=== PATIENT | female | born 1950 | race Caucasian/White ===

== ENCOUNTER → 2021-02-11 | Outpatient (CLI) | payer SELFPAY | END | disposition home or self-care (01) | LOC: LAB SHORT 13:37 | PROVIDERS: Family Medicine | DX: M54.5 Low back pain (principal); Z79.899 Other long term (current) drug therapy | CPT/HCPCS: G0480 ==

== ENCOUNTER → 2021-08-29 | Outpatient (CLI) | payer MEDICARE, OTHER | END | disposition home or self-care (01) | LOC: LAB SHORT 13:52 | PROVIDERS: Family Medicine | DX: M54.50 Low back pain, unspecified (principal); G89.29 Other chronic pain | CPT/HCPCS: G0480 ==

== ENCOUNTER → 2021-09-22 | Outpatient (CLI) | payer MEDICARE, OTHER | END | disposition home or self-care (01) | LOC: LAB SHORT 14:33 | DX: N39.0 Urinary tract infection, site not specified (principal) | CPT/HCPCS: 87077; 87086; 87186 ==

== ENCOUNTER → 2021-10-06 | Outpatient (CLI) | payer MEDICARE, OTHER ==
[2021-10-06 14:16] LABS: BASOPHILS ABSOLUTE AUTO 0.03 K/mm3 (0.00-0.23); BASOPHILS PERCENT AUTO 1 % (0-2); EOSINOPHILS ABSOLUTE AUTO 0.22 K/mm3 (0.00-0.68); EOSINOPHILS PERCENT AUTO 6 % (0-6); Hematocrit 34.5 % (33.0-51.0); Hemoglobin 11.8 g/dL (11.5-16.0); IMMATURE GRAN ABSOLUTE AUTO 0.01 K/mm3 (0.00-0.10); IMMATURE GRAN PERCENT AUTO 0 % (0-1); LYMPHOCYTES ABSOLUTE AUTO 0.37 K/mm3 (0.84-5.20); LYMPHOCYTES PERCENT AUTO 10 % (21-46); MONOCYTES PERCENT AUTO 10 % (4-13); Mean Corpuscular HGB Conc 34.2 g/dL (31.5-36.5); Mean Corpuscular Volume 94 fL (80-100); Mean Platelet Volume 10.6 fL (9.1-12.4); NEUTROPHILS PERCENT AUTO 73 % (41-73); Platelet Count 181 K/mm3 (150-400); RDW Coefficient Variation 14.3 % (11.7-14.2); RDW Standard Deviation 48.3 fL (35.1-46.3); Red Blood Cell Count 3.69 M/mm3 (3.80-5.20); White Blood Cell Count 3.83 K/mm3 (4.00-11.30)
[2021-10-06 14:28] LABS: Alanine Aminotransfer (ALT/SGP 23 U/L (12-78); Albumin, Blood 3.4 g/dL (3.4-5.0); Albumin/Globulin Ratio 0.9 (0.8-1.8); Alk Phos 101 U/L (40-126); Anion Gap 9 mmol/L (6-16); Aspartate Aminotrans (AST/SGOT 24 U/L (12-37); Bilirubin, Total 0.3 mg/dL (0.1-1.0); Blood Urea Nitrogen 14 mg/dL (8-24); Bun/Creatinine Ratio 18.7 (12.0-20.0); CO2, Blood 28 mmol/L (21-32); Calcium, Blood 9.1 mg/dL (8.5-10.1); Chloride, Blood 92 mmol/L (98-108); Creatinine, Blood 0.75 mg/dL (0.40-1.00); Globulin, Blood 3.7 g/dL (2.2-4.0); Glomerular Filtration Rate >60 (60-); Glucose, Blood 108 mg/dL (70-99); Potassium, Blood 3.8 mmol/L (3.5-5.5); Sodium, Blood 129 mmol/L (136-145); Total Protein, Blood 7.1 g/dL (6.4-8.2)
== END | disposition home or self-care (01) ==
LOC: LAB 14:13 → LAB SHORT 14:13
PROVIDERS: Family Medicine
DX: R10.9 Unspecified abdominal pain (principal)
CPT/HCPCS: 80053; 85025

== ENCOUNTER → 2021-10-08 | Outpatient (CLI) | payer MEDICARE, OTHER ==
[2021-10-08 12:21] LABS: BASOPHILS ABSOLUTE AUTO 0.02 K/mm3 (0.00-0.23); BASOPHILS PERCENT AUTO 1 % (0-2); EOSINOPHILS ABSOLUTE AUTO 0.34 K/mm3 (0.00-0.68); EOSINOPHILS PERCENT AUTO 9 % (0-6); Hematocrit 38.5 % (33.0-51.0); Hemoglobin 13.2 g/dL (11.5-16.0); IMMATURE GRAN ABSOLUTE AUTO 0.01 K/mm3 (0.00-0.10); IMMATURE GRAN PERCENT AUTO 0 % (0-1); LYMPHOCYTES ABSOLUTE AUTO 0.53 K/mm3 (0.84-5.20); LYMPHOCYTES PERCENT AUTO 15 % (21-46); MONOCYTES ABSOLUTE AUTO 0.32 K/mm3 (0.16-1.47); MONOCYTES PERCENT AUTO 9 % (4-13); Mean Corpuscular HGB Conc 34.3 g/dL (31.5-36.5); Mean Corpuscular Volume 93 fL (80-100); Mean Platelet Volume 10.5 fL (9.1-12.4); NEUTROPHILS ABSOLUTE AUTO 2.39 K/mm3 (1.96-9.15); NEUTROPHILS PERCENT AUTO 66 % (41-73); Platelet Count 168 K/mm3 (150-400); RDW Coefficient Variation 14.3 % (11.7-14.2); RDW Standard Deviation 48.5 fL (35.1-46.3); Red Blood Cell Count 4.12 M/mm3 (3.80-5.20); White Blood Cell Count 3.61 K/mm3 (4.00-11.30)
[2021-10-08 12:50] LABS: Alanine Aminotransfer (ALT/SGP 28 U/L (12-78); Albumin, Blood 3.5 g/dL (3.4-5.0); Alk Phos 105 U/L (40-126); Anion Gap 10 mmol/L (6-16); Aspartate Aminotrans (AST/SGOT 32 U/L (12-37); Bilirubin, Total 0.4 mg/dL (0.1-1.0); Blood Urea Nitrogen 10 mg/dL (8-24); Bun/Creatinine Ratio 11.9 (12.0-20.0); CO2, Blood 29 mmol/L (21-32); Calcium, Blood 8.8 mg/dL (8.5-10.1); Chloride, Blood 92 mmol/L (98-108); Creatinine, Blood 0.84 mg/dL (0.40-1.00); Globulin, Blood 3.6 g/dL (2.2-4.0); Glomerular Filtration Rate >60 (60-); Glucose, Blood 112 mg/dL (70-99); Potassium, Blood 3.7 mmol/L (3.5-5.5); Sodium, Blood 131 mmol/L (136-145); Total Protein, Blood 7.1 g/dL (6.4-8.2)
== END | disposition home or self-care (01) ==
LOC: LAB 12:16 → LAB SHORT 12:16
PROVIDERS: Chiropractor
DX: T80.69XA Other serum reaction due to other serum, initial encounter (principal); T50.905A Adverse effect of unspecified drugs, medicaments and biological substances, initial encounter
CPT/HCPCS: 80053; 85025; 85651; 86140

== ENCOUNTER 2022-06-19 11:36 | Day surgery (SDC) | payer MEDICARE, OTHER ==
[~2022-06-19] VITALS: Ht 157.5 cm; Wt 57.3 kg
[~2022-06-19 11:36] MED LIST: ALBU90OI INH; ATEN25 PO; BEVESPI AEROS10.7 G1 INH; BUDESONIDE0.5 MG/2 M INH; CATAPRES0.1 MG PO; CIPR250 PO; ENALAPRIL MALEA10 MG PO; FOLI1 PO; FOSAMAX70 MG PO; GABA300 PO; GUAI600T33 PO; IPRAT-ALBUT 0.5-3 ML NEB; LEVFLO500 PO; METHOTREXA25 MG/1 M4 IM; NITR100CA PO; Norco 10-325 T1 EACH PO; PANT40 PO; PREMARIN VAG; Prednisone10 MG PO; Protonix40 MG PO
[2022-06-19] MEDS ORDERED: MENEST (12:12)
== END 2022-06-19 14:50 | disposition home or self-care (01) ==
LOC: ORSCSDS 11:36
PROVIDERS: Internal Medicine Gastroenterology
PROC: 0DBL8ZX Excision of Transverse Colon, Via Natural or Artificial Opening Endoscopic, Diagnostic (ICD-10-PCS; principal; 2022-06-19 12:45)
DX: Z12.11 Encounter for screening for malignant neoplasm of colon (principal); Z86.010 Personal history of colon polyps; D12.3 Benign neoplasm of transverse colon; K64.8 Other hemorrhoids; I10 Essential (primary) hypertension; K21.9 Gastro-esophageal reflux disease without esophagitis; J44.9 Chronic obstructive pulmonary disease, unspecified; F17.210 Nicotine dependence, cigarettes, uncomplicated; Z79.899 Other long term (current) drug therapy
CPT/HCPCS: 88305; J2405; J2704; J7120

== ENCOUNTER → 2023-01-01 | Outpatient (CLI) | payer MEDICARE, OTHER ==
[~2023-01-01] MED LIST changes: +MENEST
== END | disposition home or self-care (01) ==
LOC: LAB SHORT 14:34 → LAB 14:34
DX: N39.0 Urinary tract infection, site not specified (principal)
CPT/HCPCS: 87077; 87086; 87186

== ENCOUNTER 2023-03-21 11:13 | Emergency (ER) | payer MEDICARE, OTHER ==
[~2023-03-21] VITALS: Ht 157.5 cm; Wt 57.1 kg
[2023-03-21] MEDS ORDERED: FUROSEMIDE20 MG PO (11:24)
[2023-03-21] MEDS ORDERED: BUPROPION HCL200 M1 PO (11:24)
[2023-03-21 11:42] LABS: BASOPHILS ABSOLUTE AUTO 0.05 K/mm3 (0.00-0.23); BASOPHILS PERCENT AUTO 1 % (0-2); EOSINOPHILS ABSOLUTE AUTO 0.19 K/mm3 (0.00-0.68); EOSINOPHILS PERCENT AUTO 3 % (0-6); Hematocrit 34.6 % (33.0-51.0); Hemoglobin 11.4 g/dL (11.5-16.0); IMMATURE GRAN ABSOLUTE AUTO 0.04 K/mm3 (0.00-0.10); IMMATURE GRAN PERCENT AUTO 1 % (0-1); LYMPHOCYTES ABSOLUTE AUTO 0.63 K/mm3 (0.84-5.20); LYMPHOCYTES PERCENT AUTO 9 % (21-46); MONOCYTES ABSOLUTE AUTO 0.64 K/mm3 (0.16-1.47); MONOCYTES PERCENT AUTO 9 % (4-13); Mean Corpuscular HGB 29.1 pg (26.0-34.0); Mean Corpuscular HGB Conc 32.9 g/dL (31.5-36.5); Mean Corpuscular Volume 88 fL (80-100); Mean Platelet Volume 9.9 fL (9.1-12.4); NEUTROPHILS ABSOLUTE AUTO 5.49 K/mm3 (1.96-9.15); NEUTROPHILS PERCENT AUTO 78 % (41-73); Platelet Count 278 K/mm3 (150-400); RDW Coefficient Variation 14.8 % (11.7-14.2); RDW Standard Deviation 47.5 fL (35.1-46.3); Red Blood Cell Count 3.92 M/mm3 (3.80-5.20); White Blood Cell Count 7.04 K/mm3 (4.00-11.30)
[2023-03-21 11:50] LABS: Albumin/Globulin Ratio 0.7 (0.8-1.8); Bilirubin, Total 0.4 mg/dL (0.1-1.0); Bun/Creatinine Ratio 14.5 (12.0-20.0); Calcium, Blood 8.7 mg/dL (8.5-10.1); Creatinine, Blood 0.83 mg/dL (0.40-1.00); Globulin, Blood 4.3 g/dL (2.2-4.0); Potassium, Blood 3.8 mmol/L (3.5-5.5); Total Protein, Blood 7.3 g/dL (6.4-8.2)
[2023-03-21] MEDS ORDERED: DOC250 PO (13:02)
[2023-03-21] MEDS ORDERED: ALPR.5 PO (13:08)
[2023-03-21 13:17] VITALS: BP 160/75
== END 2023-03-21 13:15 | disposition home or self-care (01) ==
LOC: ER 11:13
PROVIDERS: Emergency Medicine
DX: R55 Syncope and collapse (principal); K52.9 Noninfective gastroenteritis and colitis, unspecified; K59.00 Constipation, unspecified; F41.9 Anxiety disorder, unspecified; I10 Essential (primary) hypertension; J44.9 Chronic obstructive pulmonary disease, unspecified; F17.210 Nicotine dependence, cigarettes, uncomplicated; Z85.118 Personal history of other malignant neoplasm of bronchus and lung; Z88.2 Allergy status to sulfonamides; Z88.5 Allergy status to narcotic agent; Z79.899 Other long term (current) drug therapy
CPT/HCPCS: 74177; 80053; 84484; 85025; 93005; 93010; 99285-25; Q9967

== ENCOUNTER 2023-05-20 09:19 | Inpatient (IN) | payer MEDICARE, OTHER ==
[~2023-05-20] VITALS: Ht 152.4 cm; Wt 59.2 kg
[2023-05-20] VITALS (12 sets, daily range): BP systolic 90–118; BP diastolic 58–94
[~2023-05-20 09:19] MED LIST changes: +ALPR.5 PO; +BUPROPION HCL200 M1 PO; +DOC250 PO; +FUROSEMIDE20 MG PO
[2023-05-20 10:13] LABS: BASOPHILS ABSOLUTE AUTO 0.04 K/mm3 (0.00-0.23); BASOPHILS PERCENT AUTO 0 % (0-2); EOSINOPHILS ABSOLUTE AUTO 0.01 K/mm3 (0.00-0.68); EOSINOPHILS PERCENT AUTO 0 % (0-6); Hematocrit 27.5 % (33.0-51.0); IMMATURE GRAN ABSOLUTE AUTO 0.23 K/mm3 (0.00-0.10); IMMATURE GRAN PERCENT AUTO 1 % (0-1); LYMPHOCYTES ABSOLUTE AUTO 1.06 K/mm3 (0.84-5.20); LYMPHOCYTES PERCENT AUTO 6 % (21-46); MONOCYTES ABSOLUTE AUTO 0.76 K/mm3 (0.16-1.47); MONOCYTES PERCENT AUTO 4 % (4-13); Mean Corpuscular HGB Conc 32.7 g/dL (31.5-36.5); Mean Corpuscular Volume 86 fL (80-100); NEUTROPHILS ABSOLUTE AUTO 15.51 K/mm3 (1.96-9.15); NEUTROPHILS PERCENT AUTO 88 % (41-73); Platelet Count 628 K/mm3 (150-400); RDW Coefficient Variation 14.8 % (11.7-14.2); RDW Standard Deviation 46.1 fL (35.1-46.3); Red Blood Cell Count 3.21 M/mm3 (3.80-5.20); White Blood Cell Count 17.61 K/mm3 (4.00-11.30)
[2023-05-20 10:43] LABS: Albumin/Globulin Ratio 0.4 (0.8-1.8); Bilirubin, Total 0.4 mg/dL (0.1-1.0); Bun/Creatinine Ratio 18.9 (12.0-20.0); Calcium, Blood 8.8 mg/dL (8.5-10.1); Creatinine, Blood 1.11 mg/dL (0.40-1.00); Globulin, Blood 4.9 g/dL (2.2-4.0); Potassium, Blood 4.4 mmol/L (3.5-5.5); Total Protein, Blood 6.9 g/dL (6.4-8.2)
[2023-05-20 11:00] LABS: Influenza A, PCR NEGATIVE (NEGATIVE); Influenza B, PCR NEGATIVE (NEGATIVE); Resp Syncytial Virus, PCR NEGATIVE (NEGATIVE); SARS-Cov-2 (COVID-19) PCR, MMC NEGATIVE (NEGATIVE)
[2023-05-20] MEDS ORDERED: GABA100 PO (14:15)
--- NOTE | 2023-05-20 17:54 | NUR ---
PCU ADMIT / END OF SHIFT PT BROUGHT TO PCU-18 BY STANISLAV FROM ER @ APPROX 1345. PT SLID OVER FROM RNEY TO PCU BED BY MULTIPLE STAFF MEMBERS. PT A&O X4. VSS. SPO2 > 92% ON 2L NC. O2 TITRATED TO RA W/ PT TOLERATING WELL. PT REPORTING SOB IF SITTING UP TO HIGH, PT REPORTING BREATHING "EASIER" WHEN HOB LOWER. PT C/O UPPER ABD PAIN & LOWER BACK PAIN. PT LATER, THEN SAYING "I JUST ACHE ALL OVER." PT ALSO REPORTING "I'M JUST SWOLLEN. MY BELLY IS MORE SWOLLEN IN THE LAST DAY OR SO." PT ABD SOFT & NONTENDER. PT REPORTS OCCASSIONAL CONSTIPATION & LOW APPETITE. PT STATES JUST BEING DIAGNOSED W/ LUNG CANCER 04/19/23 & THAT SHE WAS SUPPOSED TO GET "PREPPED FOR CHEMO TODAY." PT STATES HAVING NOTIFIED DR PARK THAT SHE WOULD NOT BE ATTENDING APPT D/T CURRENT SYMPTOMS & COMING TO THE HOSPITAL. MONITOR SHOWING AFIB UPON ARRIVAL TO UNIT. PT CONVERTED FROM AFIB, HR 70s-110s TO NSR, HR 80s @ APPROX 1515 TODAY. MD JULIEN NOTIFIED OF CONVERSION. ECHO COMPLETED IN THIS EVENING. FAMILY AT BEDSIDE.
[2023-05-20 18:24] LABS: Bun/Creatinine Ratio 17.8 (12.0-20.0); Calcium, Blood 8.2 mg/dL (8.5-10.1); Creatinine, Blood 1.01 mg/dL (0.40-1.00); Potassium, Blood 4.2 mmol/L (3.5-5.5); Thyroid Stimulating Hormone 2.15 uIU/mL (0.360-4.800)
[2023-05-21 00:06] VITALS: BP 111/66
[2023-05-21 03:29] VITALS: BP 125/78
[2023-05-21 03:59] LABS: Hematocrit 24.9 % (33.0-51.0); Hemoglobin 7.9 g/dL (11.5-16.0); Mean Corpuscular HGB 27.6 pg (26.0-34.0); Mean Corpuscular HGB Conc 31.7 g/dL (31.5-36.5); Mean Corpuscular Volume 87 fL (80-100); Mean Platelet Volume 9.1 fL (9.1-12.4); Platelet Count 486 K/mm3 (150-400); RDW Coefficient Variation 15.1 % (11.7-14.2); RDW Standard Deviation 47.4 fL (35.1-46.3); Red Blood Cell Count 2.86 M/mm3 (3.80-5.20); White Blood Cell Count 11.89 K/mm3 (4.00-11.30)
[2023-05-21 04:23] LABS: Bun/Creatinine Ratio 17.6 (12.0-20.0); Calcium, Blood 8.3 mg/dL (8.5-10.1); Creatinine, Blood 0.91 mg/dL (0.40-1.00); Magnesium, Blood 2.3 mg/dL (1.6-2.4); Potassium, Blood 4.1 mmol/L (3.5-5.5)
--- NOTE | 2023-05-21 04:36 | NUR ---
SHIFT SUMMARY THIS RN ASSUMED CARE OF PATIENT AT 1900. PT A&O. ABLE TO MAKE NEEDS KNOWN. SR ON MONITOR WITH HR 80'S. BP STABLE. ON RA WITH SPO2 >92%; PT REQUESTING O2 FOR COMFORT. AFEBRILE. PT MEDICATED FOR PAIN PER EMAR. SBA TO BSC. PRN BREATHING TREATMENTS. NS INFUSING PER EMAR. BED IN LOWEST POSITION AND CALL LIGHT WITHIN REACH. THIS RN WILL REPORT TO ONCOMING RN.
[2023-05-21 07:40] VITALS: BP 162/93
[2023-05-21 15:46] VITALS: BP 146/90
--- NOTE | 2023-05-21 17:11 | NUR ---
TRANSFER NOTE REPORT GIVEN TO RAUL PERAL. PT TRANSFERED TO MED FLOOR VIA WHEELCHAIR WITH DIGITAL PRODUCER. PT EDUCATED ON CHANGE IN STATUS AND STATED UNDERSTANDING. PT ALSO EDUCATED ON SP02 >92% ON RA AND LACK OF NEED OF SUPPLEMENTAL O2. PT REQUESTING HOME DOSAGE OF LASIX FOR AM MEDS, RN TO FOLLOW UP WITH MD IN AM. PT HAS NO OTHER QUESTIONS OR CONCERNS AT TIME OF TRANSFER.
[2023-05-21 20:20] VITALS: BP 132/72
[2023-05-22 01:37] VITALS: BP 157/94
[2023-05-22 05:23] LABS: Hematocrit 24.7 % (33.0-51.0); Hemoglobin 7.9 g/dL (11.5-16.0); Mean Corpuscular HGB 27.7 pg (26.0-34.0); Mean Corpuscular Volume 87 fL (80-100); Mean Platelet Volume 9.1 fL (9.1-12.4); Platelet Count 517 K/mm3 (150-400); RDW Standard Deviation 46.6 fL (35.1-46.3); Red Blood Cell Count 2.85 M/mm3 (3.80-5.20); White Blood Cell Count 11.47 K/mm3 (4.00-11.30)
[2023-05-22 05:54] LABS: Bun/Creatinine Ratio 13.3 (12.0-20.0); Calcium, Blood 8.2 mg/dL (8.5-10.1); Creatinine, Blood 0.75 mg/dL (0.40-1.00); Potassium, Blood 3.9 mmol/L (3.5-5.5)
--- NOTE | 2023-05-22 06:43 | NUR ---
SHIFT SUMMARY PRN PAIN MEDICATION GIVEN X2, ANXIETY MEDICATION GIVEN ONCE. PT STILL HAD DIFFICULTY FALLING ASLEEP DESPITE MEDICATIONS AND BEING WOKEN UP. FIRE SAFETY REVIEWED, NO IGNITION SOURCES
[2023-05-22 07:56] VITALS: BP 148/85
[2023-05-22 15:31] VITALS: BP 155/85
--- NOTE | 2023-05-22 15:49 | NUR ---
SHIFT SUMMARY PT RESTING QUIETLY AT START OF SHIFT, HAVING JUST GONE TO SLEEP AFTER RECEIVING PAIN MEDICATION. PT WITH NEW DX LUNG CA, ADMITTED FOR PNM. PT RECEIVING IV ABX. UP TO BSC WITH 1P ASSIST. PT REPORTS BEING TOO WEAK TO MAKE INTO BTHRM YET. MEDICATED FOR C/O BACK PAIN, PER EMAR. OCCASSIONAL PC; SPUTUM CX SENT. DR ALATORRE IN TO SEE PT AND DISCUSS PLAN OF CARE. POSSIBLE D/C HOME TOMORROW, PER PT. MULTIPLE FAMILY IN AND OUT THRU OUT THE DAY. ABLE TO MAKE NEEDS KNOWN. EATING AND DRINKING W/O DIFFICULTY. XANAX GIVEN PER EMAR FOR ANXIETY. CALL LT IN REACH.
[2023-05-22 19:43] VITALS: BP 182/86
[2023-05-23 04:16] VITALS: BP 159/85
[2023-05-23 04:43] LABS: Hematocrit 25.4 % (33.0-51.0); Hemoglobin 8.2 g/dL (11.5-16.0); Mean Corpuscular HGB Conc 32.3 g/dL (31.5-36.5); Mean Corpuscular Volume 87 fL (80-100); Mean Platelet Volume 8.8 fL (9.1-12.4); Platelet Count 536 K/mm3 (150-400); RDW Coefficient Variation 15.3 % (11.7-14.2); RDW Standard Deviation 47.2 fL (35.1-46.3); Red Blood Cell Count 2.93 M/mm3 (3.80-5.20); White Blood Cell Count 11.69 K/mm3 (4.00-11.30)
[2023-05-23 05:05] LABS: Calcium, Blood 8.3 mg/dL (8.5-10.1); Creatinine, Blood 0.67 mg/dL (0.40-1.00)
--- NOTE | 2023-05-23 05:57 | NUR ---
SHIFT SUMMARY PT VERY ANXIOUS DURING FIRST SET OF VITAL SIGNS AND REQUESTED A MEDICATION TO HELP HER SLEEP. NOTIFIED TATE WEN. TRAZADONE ORDER OBTAINED AND GIVEN WITH NORCO AND XANAX PER PT REQUEST FOR PAIN AND EXTREME ANXIETY. MEDICATIONS EFFECTIVE AND PT WAS ABLE TO SLEEP. NO OTHER EVENTS OVERNIGHT. FIRE SAFETY REVIEWED, NO IGNITION SOURCES
[2023-05-23 07:30] VITALS: BP 164/82
--- NOTE | 2023-05-23 16:46 | NUR ---
SHIFT SUMMARY PT RESTING QUIETLY AT START OF SHIFT. WOKE EASILY FOR CARE. MEDICATED FOR C/O PAIN PER EMAR. PT UP TO BSC NEEDED TO VOID. DR ALATORRE IN TO SEE PT THIS AM. POSSIBLE D/C HOME TOMORROW, AFTER CARE MANAGERS ASSESS FOR NEEDS AT HOME. PT IS WEAK, BUT ENCOURAGED BY FAMILY TO GET UP AND WALK TODAY. PT ABLE TO AMBULATE IN RM, WITH ASSIST FROM METAL SORTER AND USING FWW. PT BACK IN BED, RESTING QUIETLY AGAIN. DENIES FURTHER NEEDS AT THIS TIME. CALL LT IN REACH.
[2023-05-23 19:20] VITALS: BP 135/73
[2023-05-24 05:07] VITALS: BP 157/80
[2023-05-24 05:48] LABS: Bun/Creatinine Ratio 11.4 (12.0-20.0); Calcium, Blood 8.4 mg/dL (8.5-10.1); Creatinine, Blood 0.7 mg/dL (0.40-1.00); Potassium, Blood 3.5 mmol/L (3.5-5.5)
--- NOTE | 2023-05-24 06:41 | NUR ---
SHIFT SUMMARY PT REQUESTED SLEEPING MEDICATION AGAIN. SHE RECEIVED 25MG OF TRAZADONE PREVIOUS NIGHT WHICH WORKED WELL. CALLED TATE WEN AND OBTAINED ORDER FOR PRN TRAZONE AT NIGHT, GIVEN WITH GOOD EFFECT. PT ALSO GIVEN PRN PAIN MEDICATION AND XANAX PER REQUEST.
[2023-05-24 07:27] VITALS: BP 138/79
[2023-05-24] MEDS ORDERED: METO25ER PO (11:09)
[2023-05-24] MEDS ORDERED: BUPR100ER PO (11:10)
[2023-05-24] MEDS ORDERED: Norco 5-325 Ta1 EACH PO (11:14)
[2023-05-24] MEDS ORDERED: ELIQUIS5 M2 PO (11:15)
[2023-05-24] MEDS ORDERED: SENN187 PO (11:16)
[2023-05-24] MEDS ORDERED: GUAI600T33 PO (11:18)
[2023-05-24] MEDS ORDERED: DULERA 100 MCG/13 GM INH (11:26)
[2023-05-24] MEDS ORDERED: LOSA50 PO (11:26)
[2023-05-24] MEDS ORDERED: MIRALAX1714 PO (11:27)
[2023-05-24] MEDS ORDERED: VISBIOME 112.51 EACH PO (11:36)
[2023-05-24] MEDS ORDERED: AMOCLA500 PO (11:37)
[2023-05-24] MEDS ORDERED: FERSU300 PO (11:38)
== END 2023-05-24 14:14 | disposition home health service (06) | DRG 871 ==
LOC: ER 09:19 → MEDS 12:11 → PCU 12:11 → MEDS 05-21 17:07 → ENPENDDIS 05-24 10:43 → MEDS 05-24 14:14
PROVIDERS: Emergency Medicine; Internal Medicine; ADMIT Internal Medicine
DX: A41.9 Sepsis, unspecified organism (principal); I50.33 Acute on chronic diastolic (congestive) heart failure; J18.8 Other pneumonia, unspecified organism; C34.02 Malignant neoplasm of left main bronchus; N17.9 Acute kidney failure, unspecified; E87.1 Hypo-osmolality and hyponatremia; J44.0 Chronic obstructive pulmonary disease with (acute) lower respiratory infection; J44.1 Chronic obstructive pulmonary disease with (acute) exacerbation; I48.91 Unspecified atrial fibrillation; M54.9 Dorsalgia, unspecified; G89.29 Other chronic pain; I11.0 Hypertensive heart disease with heart failure; Z74.09 Other reduced mobility; F41.9 Anxiety disorder, unspecified; Z20.822 Contact with and (suspected) exposure to COVID-19; D64.9 Anemia, unspecified; M51.36 Other intervertebral disc degeneration, lumbar region; M48.061 Spinal stenosis, lumbar region without neurogenic claudication; Z88.2 Allergy status to sulfonamides; Z87.440 Personal history of urinary (tract) infections; Z60.2 Problems related to living alone; Z88.5 Allergy status to narcotic agent; Z88.8 Allergy status to other drugs, medicaments and biological substances; Z79.899 Other long term (current) drug therapy; Z79.51 Long term (current) use of inhaled steroids; Z79.891 Long term (current) use of opiate analgesic; Z79.01 Long term (current) use of anticoagulants; Z98.890 Other specified postprocedural states; Z87.891 Personal history of nicotine dependence; Z23 Encounter for immunization
CPT/HCPCS: 0241U; 36415; 71045; 71260; 80048; 80053; 83605; 83735; 83880; 84145; 84443; 84484; 85025; 85027; 87040; 87070; 87205; 93005; 93010; 93306; 94640; 94664; 94760; 94762; 96361; 96365-59; 96367; 96375-59; 97110; 97116; 97162; 99285-25; A9270; J0295; J0456; J0696; J1650; J1940; J2916; J7030; J7050; Q2036; Q9967

== ENCOUNTER 2023-05-28 07:40 | Day surgery (SDC) | payer MEDICARE, OTHER ==
[~2023-05-28] VITALS: Ht 152.4 cm; Wt 57.6 kg
[~2023-05-28 07:40] MED LIST changes: +AMOCLA500 PO; +BUPR100ER PO; +DULERA 100 MCG/13 GM INH; +ELIQUIS5 M2 PO; +FERSU300 PO; +GABA100 PO; +LOSA50 PO; +METO25ER PO; +MIRALAX1714 PO; +Norco 5-325 Ta1 EACH PO; +SENN187 PO; +VISBIOME 112.51 EACH PO
--- NOTE | 2023-05-28 09:15 | NUR ---
05/28/23 0915 Virginia Maldonado 10ML OF LIDOCAINE 1% MIXED 1:1 WITH ROPIVACAINE 0.5% FOR INJECTION AT OPSITE BY DR FOWLER.
--- NOTE | 2023-05-28 10:12 | NUR ---
05/28/23 1012 Shiela Mayberry PT IN [facility], NO C/O PAIN OR NAUSEA AT THIS TIME. RADIOLOGY CONTACTED FOR MEDIPORT PLACEMENT. VSS. WILL CONTINUE TO MONITOR.
[2023-05-28 11:29] VITALS: BP 117/85
== END 2023-05-28 11:59 | disposition home or self-care (01) ==
LOC: ORSCSDS 07:40 → ORD 09:00 → ORSCSDS 09:00 → ORD 09:30 → ORSCSDS 11:59
PROVIDERS: Surgery
PROC: 0JH63WZ Insertion of Totally Implantable Vascular Access Device into Chest Subcutaneous Tissue and Fascia, Percutaneous Approach (ICD-10-PCS; principal; 2023-05-28 09:00)
DX: C34.92 Malignant neoplasm of unspecified part of left bronchus or lung (principal); I10 Essential (primary) hypertension; J44.9 Chronic obstructive pulmonary disease, unspecified; K21.9 Gastro-esophageal reflux disease without esophagitis; Z87.891 Personal history of nicotine dependence; Z79.01 Long term (current) use of anticoagulants
CPT/HCPCS: 77001; C1788; J0690; J1100; J1642; J2001; J2405; J2704; J2795; J3010

== ENCOUNTER 2023-06-24 07:53 | Emergency (ER) | payer MEDICARE, OTHER ==
[~2023-06-24] VITALS: Ht 157.5 cm; Wt 52.6 kg
[2023-06-24 08:38] LABS: BASOPHILS ABSOLUTE AUTO 0.01 K/mm3 (0.00-0.23); BASOPHILS PERCENT AUTO 0 % (0-2); EOSINOPHILS ABSOLUTE AUTO 0.01 K/mm3 (0.00-0.68); EOSINOPHILS PERCENT AUTO 0 % (0-6); Hematocrit 31.2 % (33.0-51.0); Hemoglobin 10.1 g/dL (11.5-16.0); IMMATURE GRAN ABSOLUTE AUTO 0.04 K/mm3 (0.00-0.10); IMMATURE GRAN PERCENT AUTO 1 % (0-1); LYMPHOCYTES ABSOLUTE AUTO 0.13 K/mm3 (0.84-5.20); LYMPHOCYTES PERCENT AUTO 4 % (21-46); MONOCYTES ABSOLUTE AUTO 0.08 K/mm3 (0.16-1.47); MONOCYTES PERCENT AUTO 2 % (4-13); Mean Corpuscular HGB 27.7 pg (26.0-34.0); Mean Corpuscular HGB Conc 32.4 g/dL (31.5-36.5); Mean Corpuscular Volume 86 fL (80-100); NEUTROPHILS ABSOLUTE AUTO 3.16 K/mm3 (1.96-9.15); NEUTROPHILS PERCENT AUTO 92 % (41-73); Platelet Count 73 K/mm3 (150-400); RDW Coefficient Variation 17.4 % (11.7-14.2); RDW Standard Deviation 52.7 fL (35.1-46.3); Red Blood Cell Count 3.65 M/mm3 (3.80-5.20); White Blood Cell Count 3.43 K/mm3 (4.00-11.30)
[2023-06-24 08:49] LABS: Albumin, Blood 2.4 g/dL (3.4-5.0); Albumin/Globulin Ratio 0.5 (0.8-1.8); Bilirubin, Total 0.7 mg/dL (0.1-1.0); Bun/Creatinine Ratio 19.8 (12.0-20.0); Calcium, Blood 8.9 mg/dL (8.5-10.1); Creatinine, Blood 0.86 mg/dL (0.40-1.00); Globulin, Blood 4.6 g/dL (2.2-4.0); Magnesium, Blood 1.7 mg/dL (1.6-2.4); Phosphorus, Blood 4.2 mg/dL (2.5-4.9); Potassium, Blood 3.1 mmol/L (3.5-5.5)
[2023-06-24 11:51] LABS: Source, Urine Clean Catch
[2023-06-24 11:58] LABS: Appearance, Urine Clear (Clear); Bilirubin, Urine Neg (Neg); Blood, Urine 3+ (Neg); Color, Urine Yellow (P-Yellow); Glucose Qualitative, Urine Neg (Neg); Ketones, Urine Neg (Neg); Leukocyte Esterase, Urine 2+ (Neg); Nitrite, Urine Neg (Neg); Protein, Urine 2+ (Neg); Specific Gravity, Urine 1.005 (1.003-1.022); Urobilinogen, Urine NORM (Normal); pH, Urine 6.5 (5.0-8.0)
[2023-06-24] MEDS ORDERED: CEFP200 PO (12:14)
[2023-06-24 12:18] LABS: Bacteria Few /hpf; Squamous Epithelial Cells Few /hpf (Few)
[2023-06-24 13:30] VITALS: BP 108/80
[2023-06-24] MEDS ORDERED: Norco 5-325 Ta1 EACH PO (14:00)
== END 2023-06-24 14:00 | disposition home or self-care (01) ==
LOC: ER 07:53
PROVIDERS: Physician Assistant
DX: J18.9 Pneumonia, unspecified organism (principal); N39.0 Urinary tract infection, site not specified; E87.6 Hypokalemia; Z88.8 Allergy status to other drugs, medicaments and biological substances; Z88.2 Allergy status to sulfonamides; Z88.5 Allergy status to narcotic agent; Z88.1 Allergy status to other antibiotic agents; Z79.899 Other long term (current) drug therapy; J44.9 Chronic obstructive pulmonary disease, unspecified; I10 Essential (primary) hypertension; F17.210 Nicotine dependence, cigarettes, uncomplicated
CPT/HCPCS: 71045; 80053; 81001; 83735; 84100; 85025; 87077; 87086; 87186; 93005; 93010; 94640; 94664; 96361; 96365; 96366; 99284-25; A9270; J3480; J7030; J7050

== ENCOUNTER → 2023-06-25 | Outpatient (CLI) | payer MEDICARE, OTHER ==
[~2023-06-25] MED LIST changes: +CEFP200 PO; +DECADRON6 M1 PO
[2023-06-25 16:40] LABS: BASOPHILS ABSOLUTE AUTO 0.01 K/mm3 (0.00-0.23); BASOPHILS PERCENT AUTO 0 % (0-2); EOSINOPHILS PERCENT AUTO 0 % (0-6); Hematocrit 32.1 % (33.0-51.0); Hemoglobin 10.2 g/dL (11.5-16.0); IMMATURE GRAN ABSOLUTE AUTO 0.04 K/mm3 (0.00-0.10); IMMATURE GRAN PERCENT AUTO 1 % (0-1); LYMPHOCYTES ABSOLUTE AUTO 0.25 K/mm3 (0.84-5.20); LYMPHOCYTES PERCENT AUTO 5 % (21-46); MONOCYTES ABSOLUTE AUTO 0.45 K/mm3 (0.16-1.47); MONOCYTES PERCENT AUTO 8 % (4-13); Mean Corpuscular HGB 27.3 pg (26.0-34.0); Mean Corpuscular HGB Conc 31.8 g/dL (31.5-36.5); Mean Corpuscular Volume 86 fL (80-100); NEUTROPHILS PERCENT AUTO 87 % (41-73); RDW Coefficient Variation 17.8 % (11.7-14.2); RDW Standard Deviation 54.7 fL (35.1-46.3); Red Blood Cell Count 3.73 M/mm3 (3.80-5.20); White Blood Cell Count 5.55 K/mm3 (4.00-11.30)
[2023-06-25 16:53] LABS: Albumin, Blood 2.6 g/dL (3.4-5.0); Albumin/Globulin Ratio 0.5 (0.8-1.8); Bilirubin, Total 0.4 mg/dL (0.1-1.0); Bun/Creatinine Ratio 12.8 (12.0-20.0); Creatinine, Blood 0.86 mg/dL (0.40-1.00); Globulin, Blood 5.3 g/dL (2.2-4.0); Potassium, Blood 3.3 mmol/L (3.5-5.5); Total Protein, Blood 7.9 g/dL (6.4-8.2)
[2023-06-25 17:10] LABS: Mean Platelet Volume 10.6 fL (9.1-12.4); Platelet Count 108 K/mm3 (150-400)
== END ==
LOC: LAB 16:35 → LAB SHORT 16:35
PROVIDERS: Physician Assistant
DX: R05.9 Cough, unspecified (principal); R50.9 Fever, unspecified
CPT/HCPCS: 80053; 83605; 85025

== ENCOUNTER 2023-06-29 06:23 | Inpatient (IN) | payer MEDICARE, OTHER ==
[~2023-06-29] VITALS: Ht 152.4 cm; Wt 49.5 kg
[~2023-06-29 06:23] MED LIST changes: -DECADRON6 M1 PO
[2023-06-29 07:06] LABS: BASOPHILS ABSOLUTE AUTO 0.03 K/mm3 (0.00-0.23); BASOPHILS PERCENT AUTO 0 % (0-2); EOSINOPHILS ABSOLUTE AUTO 0.02 K/mm3 (0.00-0.68); EOSINOPHILS PERCENT AUTO 0 % (0-6); Hematocrit 31.8 % (33.0-51.0); Hemoglobin 10.2 g/dL (11.5-16.0); IMMATURE GRAN ABSOLUTE AUTO 0.15 K/mm3 (0.00-0.10); IMMATURE GRAN PERCENT AUTO 2 % (0-1); LYMPHOCYTES ABSOLUTE AUTO 0.29 K/mm3 (0.84-5.20); LYMPHOCYTES PERCENT AUTO 4 % (21-46); MONOCYTES ABSOLUTE AUTO 1.47 K/mm3 (0.16-1.47); MONOCYTES PERCENT AUTO 20 % (4-13); Mean Corpuscular HGB 26.9 pg (26.0-34.0); Mean Corpuscular HGB Conc 32.1 g/dL (31.5-36.5); Mean Corpuscular Volume 84 fL (80-100); NEUTROPHILS ABSOLUTE AUTO 5.47 K/mm3 (1.96-9.15); NEUTROPHILS PERCENT AUTO 74 % (41-73); RDW Coefficient Variation 17.7 % (11.7-14.2); RDW Standard Deviation 53.1 fL (35.1-46.3); Red Blood Cell Count 3.79 M/mm3 (3.80-5.20); White Blood Cell Count 7.43 K/mm3 (4.00-11.30)
[2023-06-29 07:25] LABS: BASOPHILS PERCENT MAN 0 % (0-2); EOSINOPHILS ABSOLUTE MAN 0.07 K/mm3 (0.00-0.68); EOSINOPHILS PERCENT MAN 1 % (0-6); LYMPHOCYTES ABSOLUTE MAN 0.07 K/mm3 (0.84-5.20); LYMPHOCYTES PERCENT MAN 1 % (21-46); MONOCYTES ABSOLUTE MAN 0.81 K/mm3 (0.16-1.47); MONOCYTES PERCENT MAN 11 % (4-13); NEUTROPHILS ABSOLUTE MAN 6.46 K/mm3 (1.96-9.15); SEG NEUTROPHILS PERCENT MAN 87 % (41-73); TOTAL CELLS COUNTED 100
[2023-06-29 07:26] LABS: Albumin, Blood 2.2 g/dL (3.4-5.0); Albumin/Globulin Ratio 0.4 (0.8-1.8); Bilirubin, Total 0.7 mg/dL (0.1-1.0); Bun/Creatinine Ratio 19.7 (12.0-20.0); Calcium, Blood 8.9 mg/dL (8.5-10.1); Creatinine, Blood 0.61 mg/dL (0.40-1.00); Globulin, Blood 5.1 g/dL (2.2-4.0); Potassium, Blood 3.3 mmol/L (3.5-5.5); Total Protein, Blood 7.3 g/dL (6.4-8.2)
[2023-06-29 07:28] LABS: Platelet Count 281 K/mm3 (150-400)
[2023-06-29 08:54] LABS: International Normalized Ratio 1.12; Prothrombin Time Results 11.7 Sec (9.7-11.5)
[2023-06-29 14:53] VITALS: BP 122/75
[2023-06-29 19:39] VITALS: BP 118/87
--- NOTE | 2023-06-30 03:01 | NUR ---
PARACHUTE PACKER SUMMARY VSS. HEPARIN DRIP CONTINUES ORDERED. PAIN MEDS ADAMINISTERED FOR COMFORT - SEE MAR FOR DETAILS. ALERT AND ORIENTED. LUNG SOUNDS DIMINISHED PER AUSCULTATION. RECEIVED ANTIBIOTIC EARLIER. HAS BEEN RESTING WITH OCCASIONAL INTERRUPTIONS FOR PAIN MEDS AND IV MACHINE NOISES. DROPLET PRECAUTIONS MAINTAINED FOR COVID. CALL LIGHT IN REACH. WILL CONTINUE TO MONITOR
[2023-06-30 05:57] VITALS: BP 141/82
[2023-06-30 06:33] LABS: Albumin, Blood 2.1 g/dL (3.4-5.0); Albumin/Globulin Ratio 0.4 (0.8-1.8); Bilirubin, Total 0.4 mg/dL (0.1-1.0); Bun/Creatinine Ratio 24.7 (12.0-20.0); Calcium, Blood 9.3 mg/dL (8.5-10.1); Creatinine, Blood 0.69 mg/dL (0.40-1.00); Globulin, Blood 4.8 g/dL (2.2-4.0); Potassium, Blood 3.9 mmol/L (3.5-5.5); Total Protein, Blood 6.9 g/dL (6.4-8.2)
[2023-06-30 07:37] VITALS: BP 131/91
[2023-06-30 16:07] VITALS: BP 113/77
--- NOTE | 2023-06-30 16:48 | NUR ---
SHIFT SUMMARY- PT IS A/O, PLESANT AND COOPERATIVE. SHE IS EATING AND DRINKING WELL. ISOLATION HAS BEEN MAINTAINED THIS SHIFT. HER BED IS IN THE LOW POSITION AND CALL LIGHT IS WITIN REACH. SHE IS BEING TREATED FOR PAIN NEEDED.
[2023-06-30 20:32] VITALS: BP 118/88
[2023-07-01 03:02] VITALS: BP 139/89
[2023-07-01 07:40] VITALS: BP 140/86
--- NOTE | 2023-07-01 07:45 | NUR ---
END OF SHIFT SUMMARY PT A&O x3-4, VSS, AFEBRILE. PT CALM AND COOPERATIVE WITH CARE PROVIDED. PT C/O PAIN TO LOWER BACK AND GENERALIZED BODY ACHINESS. PAIN MANAGED WITH PRN NORCO AND IV FENTANYL. PT SLEPT ON AND OFF THROUGHOUT THE SHIFT. PRN TRAZODONE GIVEN A SLEEP AID. PT INDEPENDENT WITH ADL's, UP AD SCHUYLER, ABLE TO MAKE NEEDS KNOWN. PT CALLS APPROPRIATELY FOR ASSISTANCE. CALL LIGHT WITHIN REACH, TM. 0500: PT SLIGHTLY CONFUSED, WALKED OUTSIDE HER ROOM IN HALLWAY LOOKING ASKING WHERE THE BATHROOM WAS. PT EASILY REDIRECTABLE BACK TO HER ROOM SAFELY.
[2023-07-01 10:55] LABS: Hematocrit 30.6 % (33.0-51.0); Hemoglobin 9.5 g/dL (11.5-16.0); Mean Corpuscular HGB 27.6 pg (26.0-34.0); Mean Platelet Volume 10.8 fL (9.1-12.4); Platelet Count 390 K/mm3 (150-400); RDW Coefficient Variation 17.7 % (11.7-14.2); RDW Standard Deviation 56.2 fL (35.1-46.3); Red Blood Cell Count 3.44 M/mm3 (3.80-5.20); White Blood Cell Count 7.52 K/mm3 (4.00-11.30)
[2023-07-01 10:58] LABS: Mean Corpuscular Volume 89 fL (80-100)
[2023-07-01 11:08] LABS: Albumin/Globulin Ratio 0.4 (0.8-1.8); Bilirubin, Total 0.2 mg/dL (0.1-1.0); Bun/Creatinine Ratio 24.3 (12.0-20.0); Calcium, Blood 9.1 mg/dL (8.5-10.1); Creatinine, Blood 0.74 mg/dL (0.40-1.00); Globulin, Blood 4.6 g/dL (2.2-4.0); Potassium, Blood 3.5 mmol/L (3.5-5.5); Total Protein, Blood 6.6 g/dL (6.4-8.2)
[2023-07-01 11:35] LABS: BAND PERCENT MAN 2 % (0-8); BASOPHILS PERCENT MAN 0 % (0-2); EOSINOPHILS ABSOLUTE MAN 0.07 K/mm3 (0.00-0.68); EOSINOPHILS PERCENT MAN 1 % (0-6); LYMPHOCYTES % ATYPICAL MANUAL 1 % (0-0); LYMPHOCYTES PERCENT MAN 7 % (21-46); MONOCYTES ABSOLUTE MAN 0.52 K/mm3 (0.16-1.47); MONOCYTES PERCENT MAN 7 % (4-13); MYELOCYTE ABSOLUTE MAN 0.07 K/mm3 (0.00-0.00); MYELOCYTE PERCENT MAN 1 % (0-0); NEUTROPHILS ABSOLUTE MAN 6.24 K/mm3 (1.96-9.15); SEG NEUTROPHILS PERCENT MAN 81 % (41-73); TOTAL CELLS COUNTED 100
--- NOTE | 2023-07-01 14:50 | NUR ---
PATIENT A/OX4, UP INDEPENDENTLY IN ROOM. VSS, ON RA. CONTINUES TO HAVE A HARSH COUGH, COUGH SYRUP GIVEN X1 TODAY WITH GOOD RELIEF. SKIN INTACT. MEDIPORT ACCESSED AND HEPARIN LOCKED. PLAN IS TO D/C HOME TOMORROW WITH HOME HEALTH. BROTHER CHRISTOPHER WOULD LIKE TO SPEAK WITH THE DOCTOR BEFORE PATIENT IS DISCHARGED.
[2023-07-01 15:47] VITALS: BP 121/92
--- NOTE | 2023-07-01 16:00 | NUR ---
ASSUMED CARE OF PT. VISITOR IN ROOM AND PT ON THE PHONE. LAYING IN BED WITH NO RESP DISTRESS.
--- NOTE | 2023-07-01 19:05 | NUR ---
NO CHANGE SINCE ASSUMING CARE OF PT. SITTING UP IN BED EATING SUPPER.
[2023-07-01 20:40] VITALS: BP 126/77
[2023-07-02 04:10] VITALS: BP 173/93
[2023-07-02 05:12] LABS: Hematocrit 29.2 % (33.0-51.0); Mean Corpuscular HGB 27.4 pg (26.0-34.0); Mean Corpuscular HGB Conc 30.8 g/dL (31.5-36.5); Mean Corpuscular Volume 89 fL (80-100); Mean Platelet Volume 10.4 fL (9.1-12.4); NRBC ABSOLUTE 0.02 K/mm3 (0.00-0.02); NRBC Auto 0.3 /100 WBC (0.0-0.2); Platelet Count 372 K/mm3 (150-400); RDW Coefficient Variation 17.6 % (11.7-14.2); RDW Standard Deviation 56.4 fL (35.1-46.3); Red Blood Cell Count 3.28 M/mm3 (3.80-5.20); White Blood Cell Count 6.17 K/mm3 (4.00-11.30)
[2023-07-02 05:39] LABS: Albumin, Blood 1.9 g/dL (3.4-5.0); Albumin/Globulin Ratio 0.4 (0.8-1.8); Bilirubin, Total 0.3 mg/dL (0.1-1.0); Bun/Creatinine Ratio 19.1 (12.0-20.0); Globulin, Blood 4.6 g/dL (2.2-4.0); Potassium, Blood 4.3 mmol/L (3.5-5.5); Total Protein, Blood 6.5 g/dL (6.4-8.2)
[2023-07-02 06:14] VITALS: BP 144/96
[2023-07-02 06:39] LABS: BAND PERCENT MAN 1 % (0-8); BASOPHILS PERCENT MAN 0 % (0-2); EOSINOPHILS PERCENT MAN 0 % (0-6); LYMPHOCYTES PERCENT MAN 5 % (21-46); METAMYELOCYTE ABSOLUTE MAN 0.37 K/mm3 (0.00-0.00); METAMYELOCYTE PERCENT MAN 6 % (0-0); MONOCYTES ABSOLUTE MAN 0.49 K/mm3 (0.16-1.47); MONOCYTES PERCENT MAN 8 % (4-13); MYELOCYTE ABSOLUTE MAN 0.24 K/mm3 (0.00-0.00); MYELOCYTE PERCENT MAN 4 % (0-0); NEUTROPHILS ABSOLUTE MAN 4.75 K/mm3 (1.96-9.15); SEG NEUTROPHILS PERCENT MAN 76 % (41-73); TOTAL CELLS COUNTED 100
--- NOTE | 2023-07-02 06:52 | NUR ---
SHIFT SUMMARY PATIENT A/Ox4, PLEASANT/COOPERATIVE. DENIES PAIN/DISCOMFORT. DENIES SOB/DYSPNEA, SPO2 95% ON RA. INDEPENDENT IN ROOM. NO ACUTE CHANGES NOTED OVERNIGHT. BED LOCKED IN LOWEST POSITION, CALL LIGHT WITHIN REACH.
[2023-07-02 07:54] VITALS: BP 164/89
[2023-07-02] MEDS ORDERED: DECADRON6 M1 PO (14:24)
[2023-07-02 15:25] VITALS: BP 120/81
--- NOTE | 2023-07-02 17:47 | NUR ---
SHIFT/DISCHARGE SUMMARY: PATIENT A/OX4. ANSWER TO QUESTIONS APPROPRIATELY AND ABLE TO MAKE NEEDS KNOWN. PATIENT CALM, PLEASANT AND COOPERATIVE c CARE PROVIDED. PATIENT DENIES CP/PRESSURE, N/V, SOB AND DIZZINESS. PATIENT REPORTS PAIN 6-9/10 TO BACK, MEDICATED c SCHEDULED AND PRN PAIN MEDS c GOOD EFFECT. ON TELE, SR HR IN THE HIGH 80'S BPM c OCCASIONAL PAC/PVC PER BLEACH CHLORINATOR. RA, LUNGS COARSE TO AB. PATIENT CONTINENCE OF BOWELS/BLADDER, AMBULATES TO BATHROOM c SBA/FWW. PATIENT RECEIVED IV ABX AND SCHEDULED MEDS PER EMAR. VITAL SIGNS REVIEWED. PORT TO RU CHEST DEACCESSED, FLUSHED c HEPARIN PER PROTOCOL. PATIENT DISCHARGE HOME. DISCHARGE INSTRUCTIONS PACKET GIVEN TO PATIENT. EDUCATE PATIENT REGARDING ADMITTING DX'S OF PNUEMONIA D/T COVID POSITIVE, S/S, TX, NEW PRESCRIBED MEDICATIONS, SELF CARE AND TO FOLLOW c PCP AND ONCOLOGY. PATIENT VERBALIZED UNDERSTANDING AND NO FURTHER QUESTIONS. RX WAS FAXED TO PATIENT PREFERRED PHARMACY ([facility]). ALL PATIENT PERSONAL BELONGINGS WERE SENT HOME c THE PATIENT. PATIENT LEFT THE ROOM AT AROUND 1710'S AND WAS TRANSPORTED VIA WHEELCHAIR BY ADAPTED PHYSICAL EDUCATION TEACHER STAFF ALIVEA TO PATIENT ENTRANCE.
== END 2023-07-02 17:20 | disposition home health service (06) | DRG 177 ==
LOC: ER 06:23 → MEDS 11:09 → ENPENDDIS 07-02 10:16 → MEDS 07-02 17:20
PROVIDERS: Family Medicine; ADMIT Hospitalist
PROC: 3E0333Z Introduction of Anti-inflammatory into Peripheral Vein, Percutaneous Approach (ICD-10-PCS; principal; 2023-06-29)
DX: U07.1 COVID-19 (principal); J12.82 Pneumonia due to coronavirus disease 2019; N39.0 Urinary tract infection, site not specified; J44.0 Chronic obstructive pulmonary disease with (acute) lower respiratory infection; C34.90 Malignant neoplasm of unspecified part of unspecified bronchus or lung; Z16.29 Resistance to other single specified antibiotic; J44.1 Chronic obstructive pulmonary disease with (acute) exacerbation; I48.91 Unspecified atrial fibrillation; I10 Essential (primary) hypertension; F41.9 Anxiety disorder, unspecified; K21.9 Gastro-esophageal reflux disease without esophagitis; Z88.2 Allergy status to sulfonamides; Z88.1 Allergy status to other antibiotic agents; Z88.5 Allergy status to narcotic agent; Z88.8 Allergy status to other drugs, medicaments and biological substances; Z90.49 Acquired absence of other specified parts of digestive tract
CPT/HCPCS: 36415; 71045; 71260; 80048; 80053; 83605; 85025; 85520; 85610; 85730; 87040; 93005; 93010; 94640; 94664; 94760; 94762; 96361; 96365; 96366; 96368; 96375; 96376; 97110; 97161; 97165; 97530; 97535; 99285-25; A9270; J0692; J1642; J1644; J2185; J3010; J7030; J7626; Q9967

== ENCOUNTER 2023-07-14 19:08 | Inpatient (IN) | payer MEDICARE, OTHER ==
[~2023-07-14] VITALS: Ht 162.6 cm; Wt 56.7 kg
[~2023-07-14 19:08] MED LIST changes: -ALBU2.5V5 INH; -ALPR.25 PO; -AMLODIPINE BESYL5 MG PO; -ATENOLOL25 MG PO; -Acetaminophen650 M1 PO; -BUDESONIDE1 MG/2 M1 INH; -CODEINE-GUAIFE120 M1 PO; -Enalapril Malea20 MG PO; -GABA300 PO; -METOPROLOL SUCC25 MG PO; -ONDA8 PO; -OXYCODONE-ACET1 EAC2 PO; -SULTRIDS PO; -TRAZ50 PO
[2023-07-14 19:50] LABS: BASOPHILS ABSOLUTE AUTO 0.02 K/mm3 (0.00-0.23); BASOPHILS PERCENT AUTO 0 % (0-2); EOSINOPHILS PERCENT AUTO 0 % (0-6); Hematocrit 24.6 % (33.0-51.0); Hemoglobin 7.8 g/dL (11.5-16.0); IMMATURE GRAN ABSOLUTE AUTO 0.07 K/mm3 (0.00-0.10); IMMATURE GRAN PERCENT AUTO 1 % (0-1); LYMPHOCYTES ABSOLUTE AUTO 0.05 K/mm3 (0.84-5.20); LYMPHOCYTES PERCENT AUTO 0 % (21-46); MONOCYTES ABSOLUTE AUTO 0.33 K/mm3 (0.16-1.47); MONOCYTES PERCENT AUTO 3 % (4-13); Mean Corpuscular HGB 28.2 pg (26.0-34.0); Mean Corpuscular HGB Conc 31.7 g/dL (31.5-36.5); Mean Corpuscular Volume 89 fL (80-100); Mean Platelet Volume 10.7 fL (9.1-12.4); NEUTROPHILS ABSOLUTE AUTO 11.46 K/mm3 (1.96-9.15); NEUTROPHILS PERCENT AUTO 96 % (41-73); NRBC ABSOLUTE 0.03 K/mm3 (0.00-0.02); NRBC Auto 0.3 /100 WBC (0.0-0.2); Platelet Count 199 K/mm3 (150-400); RDW Coefficient Variation 20.4 % (11.7-14.2); RDW Standard Deviation 65.4 fL (35.1-46.3); Red Blood Cell Count 2.77 M/mm3 (3.80-5.20); White Blood Cell Count 11.93 K/mm3 (4.00-11.30)
[2023-07-14 20:08] LABS: Albumin, Blood 2.3 g/dL (3.4-5.0); Albumin/Globulin Ratio 0.5 (0.8-1.8); Bilirubin, Total 0.6 mg/dL (0.1-1.0); Bun/Creatinine Ratio 30.8 (12.0-20.0); Calcium, Blood 8.8 mg/dL (8.5-10.1); Creatinine, Blood 0.71 mg/dL (0.40-1.00); Globulin, Blood 4.8 g/dL (2.2-4.0); Potassium, Blood 4.2 mmol/L (3.5-5.5); Total Protein, Blood 7.1 g/dL (6.4-8.2)
[2023-07-15] MEDS ORDERED: VISBIOME 112.51 EACH PO (00:29)
[2023-07-15] MEDS ORDERED: Acetaminophen650 M1 PO (00:31)
[2023-07-15] MEDS ORDERED: SENN187 PO (00:33)
[2023-07-15] MEDS ORDERED: ALBU2.5V5 INH (00:34)
[2023-07-15] MEDS ORDERED: BUDESONIDE1 MG/2 M1 INH (00:34)
[2023-07-15] MEDS ORDERED: ONDA8 PO (00:35)
[2023-07-15] MEDS ORDERED: TRAZ50 PO (00:36)
[2023-07-15] MEDS ORDERED: CODEINE-GUAIFE120 M1 PO (00:37)
[2023-07-15] MEDS ORDERED: Norco 10-325 T1 EACH PO (00:38)
[2023-07-15] MEDS ORDERED: ALPR.25 PO (00:40)
[2023-07-15] MEDS ORDERED: GABA300 PO (00:40)
[2023-07-15] MEDS ORDERED: METOPROLOL SUCC25 MG PO (00:42)
[2023-07-15] MEDS ORDERED: OXYCODONE-ACET1 EAC2 PO (00:42)
[2023-07-15] MEDS ORDERED: Prednisone10 MG PO (00:43)
--- NOTE | 2023-07-15 01:15 | NUR ---
ER ADMIT PT ARRIVED VIA W/C, CONTACT PRECAUTIONS IN PLACE FOR ESBL IN URINE. TELE APPLIED, SR@92 PER COMPLETION ENGINEER. SPUTUM SAMPLE SENT. REPORTED HX LUNG CA, W/ PORT TO R CHEST FOR CURRENT TX OF CHEMO. PT AMBULATED W/ SBA TO BATHROOM, USE OF ADULT BRIEFS FOR COUGH INCONTIN.
[2023-07-15 01:29] VITALS: BP 141/94
[2023-07-15 05:19] VITALS: BP 154/98
[2023-07-15 05:47] LABS: BASOPHILS ABSOLUTE AUTO 0.01 K/mm3 (0.00-0.23); BASOPHILS PERCENT AUTO 0 % (0-2); EOSINOPHILS PERCENT AUTO 0 % (0-6); Hematocrit 23.6 % (33.0-51.0); Hemoglobin 7.3 g/dL (11.5-16.0); IMMATURE GRAN ABSOLUTE AUTO 0.05 K/mm3 (0.00-0.10); IMMATURE GRAN PERCENT AUTO 1 % (0-1); LYMPHOCYTES ABSOLUTE AUTO 0.05 K/mm3 (0.84-5.20); LYMPHOCYTES PERCENT AUTO 1 % (21-46); MONOCYTES ABSOLUTE AUTO 0.21 K/mm3 (0.16-1.47); MONOCYTES PERCENT AUTO 2 % (4-13); Mean Corpuscular HGB 27.5 pg (26.0-34.0); Mean Corpuscular HGB Conc 30.9 g/dL (31.5-36.5); Mean Corpuscular Volume 89 fL (80-100); Mean Platelet Volume 11.1 fL (9.1-12.4); NEUTROPHILS ABSOLUTE AUTO 9.09 K/mm3 (1.96-9.15); NEUTROPHILS PERCENT AUTO 97 % (41-73); NRBC ABSOLUTE 0.02 K/mm3 (0.00-0.02); NRBC Auto 0.2 /100 WBC (0.0-0.2); Platelet Count 147 K/mm3 (150-400); RDW Coefficient Variation 20.9 % (11.7-14.2); Red Blood Cell Count 2.65 M/mm3 (3.80-5.20); White Blood Cell Count 9.41 K/mm3 (4.00-11.30)
[2023-07-15 06:23] LABS: Albumin/Globulin Ratio 0.5 (0.8-1.8); Bilirubin, Total 0.6 mg/dL (0.1-1.0); Bun/Creatinine Ratio 32.7 (12.0-20.0); Calcium, Blood 8.4 mg/dL (8.5-10.1); Creatinine, Blood 0.52 mg/dL (0.40-1.00); Globulin, Blood 4.2 g/dL (2.2-4.0); Potassium, Blood 3.9 mmol/L (3.5-5.5); Total Protein, Blood 6.2 g/dL (6.4-8.2)
[2023-07-15 07:20] VITALS: BP 151/85
--- NOTE | 2023-07-15 07:32 | NUR ---
SHIFT SUMMARY PT ADMIT FOR SEPSIS PNEU W/ RECENT HX OF LUNG CA AND RECEIVING CHEMO. CONTACT PREC FOR HX ESBL IN URINE. PT A&OX4, PLEASANT AND COOPERATIVE. VSS, SPUTUM SAMPLE OBTAINED AND SENT. PT NPO AND CONCERNED REGARDING. SBA TO BATHROOM, ADULT BRIEF USED FOR COUGH INCONT. CALL LIGHT W/IN REACH. SPOKE W/ BROTHER REGARDING UPDATES AND INFORMED OF NO NEW NEWS AT THIS TIME.
[2023-07-15 15:36] VITALS: BP 137/82
--- NOTE | 2023-07-15 17:25 | NUR ---
PT IS A/OX4, PLEASANT AND COOPERATIVE. THE PT IS UP WITH MINIMAL ASSIST TO THE BATHROOM. THE PT WAS MEDICATED FOR CHRONIC BACK PAIN T/O THE DAY. THE PT APPEARS TO BE BREATHING EASILY WITHOUT OXYGEN AT THIS TIME. THE PT HAS A PRODUCTIVE COUGH, SPUTUM SAMPLE COLLECTED AND SENT. FAMILY IS AT THE BEDSIDE. CALL LIGHT IN REACH. WILL CONTINUE TO MONITOR AND ASSESS FOR CHANGES
[2023-07-15 19:31] VITALS: BP 117/52
[2023-07-16 03:34] VITALS: BP 141/80
--- NOTE | 2023-07-16 04:19 | NUR ---
SHIFT SUMMARY PATIENT A/Ox4. C/O CHRONIC BACK PAIN, MEDICATED PER EMAR. ONGOING PRODUCTIVE INTERMITTENT COUGH, LUNGS ARE COARSE THROUGHOUT, WORSE ON LEFT WITH CRACKLES IN UPPER AND LOWER LOBES. DENIES SOB NOR DIFFICULTY BREATHING, IS ON ROOM AIR. NO ACUTE CHANGES NOTED OVERNIGHT. BED LOCKED AND IN LOWEST POSITION, HOB ELEVATED FOR COMFORT, CALL LIGHT WITHIN REACH.
[2023-07-16 07:39] VITALS: BP 122/81
[2023-07-16 08:37] LABS: BASOPHILS ABSOLUTE AUTO 0.02 K/mm3 (0.00-0.23); BASOPHILS PERCENT AUTO 0 % (0-2); EOSINOPHILS PERCENT AUTO 0 % (0-6); Hematocrit 29.2 % (33.0-51.0); IMMATURE GRAN ABSOLUTE AUTO 0.09 K/mm3 (0.00-0.10); IMMATURE GRAN PERCENT AUTO 1 % (0-1); LYMPHOCYTES ABSOLUTE AUTO 0.08 K/mm3 (0.84-5.20); LYMPHOCYTES PERCENT AUTO 1 % (21-46); MONOCYTES ABSOLUTE AUTO 0.08 K/mm3 (0.16-1.47); MONOCYTES PERCENT AUTO 1 % (4-13); Mean Corpuscular HGB 27.6 pg (26.0-34.0); Mean Corpuscular HGB Conc 30.8 g/dL (31.5-36.5); Mean Corpuscular Volume 90 fL (80-100); NEUTROPHILS ABSOLUTE AUTO 12.54 K/mm3 (1.96-9.15); NEUTROPHILS PERCENT AUTO 98 % (41-73); NRBC ABSOLUTE 0.03 K/mm3 (0.00-0.02); NRBC Auto 0.2 /100 WBC (0.0-0.2); Platelet Count 157 K/mm3 (150-400); RDW Standard Deviation 67.7 fL (35.1-46.3); Red Blood Cell Count 3.26 M/mm3 (3.80-5.20); White Blood Cell Count 12.81 K/mm3 (4.00-11.30)
[2023-07-16 08:58] LABS: BAND PERCENT MAN 1 % (0-8); BASOPHILS PERCENT MAN 0 % (0-2); EOSINOPHILS PERCENT MAN 0 % (0-6); MONOCYTES PERCENT MAN 0 % (4-13); NEUTROPHILS ABSOLUTE MAN 12.81 K/mm3 (1.96-9.15); SEG NEUTROPHILS PERCENT MAN 99 % (41-73); TOTAL CELLS COUNTED 100
[2023-07-16 14:00] LABS: Vancomycin, Trough 17.3 ug/mL (5.0-10.0)
[2023-07-16 15:24] VITALS: BP 105/71
[2023-07-16] MEDS ORDERED: Enalapril Malea20 MG PO (16:31)
[2023-07-16] MEDS ORDERED: AMLODIPINE BESYL5 MG PO (16:35)
[2023-07-16] MEDS ORDERED: ATENOLOL25 MG PO (16:55)
--- NOTE | 2023-07-16 18:36 | NUR ---
PT IS A/OX4, PLEASANT AND COOPERATIVE. UP WITH MINIMAL ASSIST IN HER ROOM. THE PT WAS UP AMBULATING IN HER ROOM THIS AM FREQUANTLY PTS HR RATE WAS 120'S TO 140'S. PT WAS MEDICATED FOR PAIN T/O THE DAY. PT IS NOT REQUIRING O2 AT THIS TIME. THE PTS FAMILY WAS IN TO VISIT TODAY. CALL LIGHT IN REACH. BED IN THE LOW POSITION. PT WAS ASSISTED WITH A SHOWER TODAY
[2023-07-16 19:32] VITALS: BP 110/75
[2023-07-17 04:03] VITALS: BP 113/87
--- NOTE | 2023-07-17 04:38 | NUR ---
SHIFT SUMMARY PATIENT A/Ox4. PAIN MANAGED PER EMAR, DENIES AT TIME OF ASSESSMENT. DENIES SOB NOR DIFFICULTY BREATHING, ON ROOM AIR. NO ACUTE CHANGES NOTED OVERNIGHT. BED LOCKED AND IN LOWEST POSITION, HOB ELEVATED FOR COMFORT, CALL LIGHT WITHIN REACH.
[2023-07-17 05:37] LABS: BASOPHILS ABSOLUTE AUTO 0.07 K/mm3 (0.00-0.23); BASOPHILS PERCENT AUTO 1 % (0-2); EOSINOPHILS ABSOLUTE AUTO 0.01 K/mm3 (0.00-0.68); EOSINOPHILS PERCENT AUTO 0 % (0-6); Hematocrit 26.4 % (33.0-51.0); Hemoglobin 8.2 g/dL (11.5-16.0); IMMATURE GRAN ABSOLUTE AUTO 0.18 K/mm3 (0.00-0.10); IMMATURE GRAN PERCENT AUTO 2 % (0-1); LYMPHOCYTES ABSOLUTE AUTO 0.07 K/mm3 (0.84-5.20); LYMPHOCYTES PERCENT AUTO 1 % (21-46); MONOCYTES ABSOLUTE AUTO 0.09 K/mm3 (0.16-1.47); MONOCYTES PERCENT AUTO 1 % (4-13); Mean Corpuscular HGB 27.4 pg (26.0-34.0); Mean Corpuscular HGB Conc 31.1 g/dL (31.5-36.5); Mean Corpuscular Volume 88 fL (80-100); Mean Platelet Volume 11.6 fL (9.1-12.4); NEUTROPHILS PERCENT AUTO 95 % (41-73); NRBC ABSOLUTE 0.03 K/mm3 (0.00-0.02); NRBC Auto 0.4 /100 WBC (0.0-0.2); Platelet Count 136 K/mm3 (150-400); RDW Coefficient Variation 20.7 % (11.7-14.2); RDW Standard Deviation 66.7 fL (35.1-46.3); Red Blood Cell Count 2.99 M/mm3 (3.80-5.20); White Blood Cell Count 8.52 K/mm3 (4.00-11.30)
[2023-07-17 06:07] LABS: Bun/Creatinine Ratio 24.6 (12.0-20.0); Creatinine, Blood 0.57 mg/dL (0.40-1.00)
[2023-07-17 07:25] VITALS: BP 113/71
[2023-07-17 15:08] VITALS: BP 117/71
--- NOTE | 2023-07-17 18:12 | NUR ---
PATIENT WITH HIGH ANXIETY AND SHORTNESS OF BREATH BEGINNING OF SHIFT, DR MONAHAN MADE AWARE AND ORDERED ADDITIONAL XANAX IF NEEDED, DURAGESIC PATCH WELL. RESPIRATORY THERAPY GIVING TREATMENTS NEEDED. PATIENT SLEEPING WHEN OFFERED ADDED XANAX AND SHE REFUSED. PATIENT RESTING IN BED WITH SOME SHORTNESS OF BREATH IN LATER SHIFT BUT VERBALIZES DECREASE IN PAIN AFTER PAIN MEDS GIVEN COMPARED TO BEFORE. PATIENT CURRENTLY RESTING IN BED WITH BED IN LOW POSTIION CALL LIGHT IN REACH. PATIENT SOMETIMES YELLS OUT FOR HELP TO COMMODE AND OR BATHROOM.
[2023-07-17 19:57] VITALS: BP 112/77
[2023-07-18 05:03] VITALS: BP 135/89
[2023-07-18 06:34] LABS: Bun/Creatinine Ratio 22.7 (12.0-20.0); Calcium, Blood 8.1 mg/dL (8.5-10.1); Creatinine, Blood 0.57 mg/dL (0.40-1.00); Potassium, Blood 3.9 mmol/L (3.5-5.5)
[2023-07-18 07:29] VITALS: BP 123/88
[2023-07-18 15:28] VITALS: BP 181/101
[2023-07-18 15:40] VITALS: BP 125/77
--- NOTE | 2023-07-18 16:00 | NUR ---
PATIENT IS DECREASING IN MENTATION THIS AFTERNOON ORIENTED TO SELF. FOLLOWS DIRECTION AFTER REPEATED COMMANDS. A LITTLE SHAKY. O2 SAT WITH MIN EXERTION 89% ROOM AIR. DR NOTIFIED. AND DECREASING MEDICATIONS FURTHER, DISCONTINUING GABAPENTIN AND ORDERING PT/OT EVAL. DR MONAHAN CAME TO BEDSIDE FOR ASSESSMENT AND DISCUSSION WITH FAMILY PLAN OF CARE.
--- NOTE | 2023-07-18 18:29 | NUR ---
SHIFT SUMMARY PATIENT WITH DECREASED MENTATION MID DAY AND DIFFICULTY STANDING TO STEP TO COMMODE, SHE REQUIRED 2PERSON ASSIST WITH GAIT BELT AND VERBAL CUING. MADE AWARE. MEDS ADJUSTED, PATIENT MORE AWAKE AND AWARE THIS EVENING AT DINNER. SHE IS CURRENTLY ON ROOM AIR BUT REQUIRES 1 LPM NC TO GET UP TO COMMODE. WHEN ASKED ABOUT PAIN SHE ALWAYS RATES IT 7-10 EVEN AFTER PAIN MEDS GIVEN BUT FACE SCALE IS MORE APPROPRIATE FOR HER AND 1 HOUR AFTER PERCOCET TODAY HER SCORE WAS 0. BED IN LOW POSTITION, CALL LIGHT IN REACH. BED ALARM ON. PATIENT MAKES NEEDS KNOWN.
[2023-07-18 20:16] VITALS: BP 111/70
[2023-07-19 03:45] VITALS: BP 126/84
--- NOTE | 2023-07-19 05:51 | NUR ---
NOC SHIFT SUMMARY: ALERT AND ORIENTED X4. FORGETFUL AT TIMES. ESBL IN SPUTUM. PRODUCTIVE COUGH. PERCOCET FOR PAIN CONTROL. UP WITH 1-2 ASSIST AND WALKER TO THE BATHROOM. BED IN LOW POSITION. CALL LIGHT WITHIN REACH.
[2023-07-19 07:24] VITALS: BP 125/77
--- NOTE | 2023-07-19 18:21 | NUR ---
SHIFT SUMMARY Pt remains A&Ox3, forgetful at times with labile emotions. Will have demands/anger, then cry. Emotional support provided. Lung sounds coarse on RA. Back managed with current regime. Up to bsc with min ast. No acute distress noted this shift.
[2023-07-19 20:23] VITALS: BP 115/74
--- NOTE | 2023-07-20 03:17 | NUR ---
DIESEL ENGINE MECHANIC APPRENTICE SUMMARY VSS. A/O X 4. VERBAL RESPONSE APPROPRIATE, TEARAY EYED AT SHIFT COMMENCE, BUT SHOFT PROGRESSED, AFFECT IMPROVED AND WAS ABLE TO JOKE WITH NURSE. IV ANTIBIOTICS AND PAIN MEDS ADMINISTERED - SEE MAR FOR DETAILS. REMAINS ON ROOM AIR, OCCASIONAL COUGH - SOME PRODUCTIVE LIGHT BROWN TINGED. UP TO BEDSIDE COMMODE NEEDED. RT TREATMENTS ORDERED. HAS BEEN RESTING INTERMITTENTLY THROUGH SHIFT. ISOLATION PRECAUTIONS MAINTAINED. CALL LIGHT IN REACH. RAILS UP X 3 FOR SAFETY. WILL CONTINUE TO MONITOR
[2023-07-20 04:49] VITALS: BP 109/67
[2023-07-20 06:08] LABS: BASOPHILS ABSOLUTE AUTO 0.02 K/mm3 (0.00-0.23); BASOPHILS PERCENT AUTO 1 % (0-2); EOSINOPHILS ABSOLUTE AUTO 0.08 K/mm3 (0.00-0.68); EOSINOPHILS PERCENT AUTO 2 % (0-6); Hematocrit 26.7 % (33.0-51.0); Hemoglobin 8.4 g/dL (11.5-16.0); IMMATURE GRAN ABSOLUTE AUTO 0.05 K/mm3 (0.00-0.10); IMMATURE GRAN PERCENT AUTO 1 % (0-1); LYMPHOCYTES PERCENT AUTO 5 % (21-46); MONOCYTES PERCENT AUTO 10 % (4-13); Mean Corpuscular HGB 28.1 pg (26.0-34.0); Mean Corpuscular HGB Conc 31.5 g/dL (31.5-36.5); Mean Corpuscular Volume 89 fL (80-100); NEUTROPHILS ABSOLUTE AUTO 3.09 K/mm3 (1.96-9.15); NEUTROPHILS PERCENT AUTO 81 % (41-73); Platelet Count 87 K/mm3 (150-400); RDW Coefficient Variation 20.7 % (11.7-14.2); RDW Standard Deviation 66.9 fL (35.1-46.3); Red Blood Cell Count 2.99 M/mm3 (3.80-5.20); White Blood Cell Count 3.84 K/mm3 (4.00-11.30)
[2023-07-20 06:35] LABS: Bun/Creatinine Ratio 15.1 (12.0-20.0); Calcium, Blood 8.2 mg/dL (8.5-10.1); Creatinine, Blood 0.66 mg/dL (0.40-1.00); Potassium, Blood 3.4 mmol/L (3.5-5.5)
[2023-07-20 07:16] VITALS: BP 129/90
[2023-07-20 16:39] VITALS: BP 134/74
--- NOTE | 2023-07-20 18:30 | NUR ---
SHIFT SUMMARY Pt remains A&Ox3 this shift. VSS. Resp even nonlabored on RA. Up to bsc with SBA. Fentanyl patch placed left upper back. No acute distress this shift. Pt resting comfortably after dinner.
[2023-07-20 20:09] VITALS: BP 132/82
--- NOTE | 2023-07-21 03:30 | NUR ---
STONEWORKING BELT SANDER SUMMARY VSS. ALERT AND ORIENTED X 4. HOB REMAINS ELEVATED FOR BREATHING AND TO PREVENT ASPIRATION WHEN TAKING MEDS, IV ANTIBIOTICS INFUSED, PAIN MEDS ADMINISTERED - SEE MAR FOR DETAILS. LUNG SOUNDS DIMINISHED AND COARSE IN SOME AREAS. O2 SATS IN THE 90'S. MED TELE SINUS ARRYTHMIAS BETWEEN 88 AND 105. HAS BEEN RESTING QUIETLY WITH FEW INTERRUPTIONS - USUALLY DUE TO DISCOMFORT. CALL LIGHT IN REACH. RAILS UP X 2 FOR SAFETY. DROPLET ISOLATION PREACUTIONS MAINTAINED. WILL CONTINUE TO MONITOR
[2023-07-21 03:50] VITALS: BP 96/66
[2023-07-21 06:19] LABS: BASOPHILS ABSOLUTE AUTO 0.02 K/mm3 (0.00-0.23); BASOPHILS PERCENT AUTO 1 % (0-2); EOSINOPHILS ABSOLUTE AUTO 0.07 K/mm3 (0.00-0.68); EOSINOPHILS PERCENT AUTO 2 % (0-6); Hematocrit 28.4 % (33.0-51.0); IMMATURE GRAN ABSOLUTE AUTO 0.05 K/mm3 (0.00-0.10); IMMATURE GRAN PERCENT AUTO 1 % (0-1); LYMPHOCYTES ABSOLUTE AUTO 0.29 K/mm3 (0.84-5.20); LYMPHOCYTES PERCENT AUTO 7 % (21-46); MONOCYTES ABSOLUTE AUTO 0.54 K/mm3 (0.16-1.47); MONOCYTES PERCENT AUTO 13 % (4-13); Mean Corpuscular HGB Conc 31.7 g/dL (31.5-36.5); Mean Corpuscular Volume 89 fL (80-100); Mean Platelet Volume 12.3 fL (9.1-12.4); NEUTROPHILS PERCENT AUTO 77 % (41-73); Platelet Count 103 K/mm3 (150-400); RDW Coefficient Variation 20.8 % (11.7-14.2); RDW Standard Deviation 65.2 fL (35.1-46.3); Red Blood Cell Count 3.21 M/mm3 (3.80-5.20); White Blood Cell Count 4.27 K/mm3 (4.00-11.30)
[2023-07-21 06:38] LABS: Bun/Creatinine Ratio 15.5 (12.0-20.0); Calcium, Blood 8.5 mg/dL (8.5-10.1); Creatinine, Blood 0.71 mg/dL (0.40-1.00); Potassium, Blood 3.2 mmol/L (3.5-5.5)
[2023-07-21 07:40] VITALS: BP 90/53
--- NOTE | 2023-07-21 13:59 | NUR ---
Patient somnolent this shift, but easily awakes. Patient reported not feeling well, sats stable 4lpm, afebrile. 1350 Daughter called & reported patient self administred Seroquel. RN asked patient if she took seroquel, and how much was the dosage. Patient reported she took Seroquel 100mg PO this AM around 11ish. Provided education on the importance of not self adminsitering home meds, and MDs need to be aware of all medications due to interactions or if the MD does not want that med given. Patient said she justed wanted to get some sleep. Patient allowed RN to take bottle & lock up outside her room. Called and reported incident to MD.
[2023-07-21 14:14] VITALS: BP 85/66
[2023-07-21 16:04] VITALS: BP 93/62
--- NOTE | 2023-07-21 17:57 | NUR ---
DAYSHIFT SUMMARY Patient alert & oriented x4. Patient doing well with ambulation, worked with therapy today. Independent in room. Plan to continue IV Meropenum today & DC home tomorrow. Patient c/o severe back pain, and wanted to increased percocet dose, offered heating pad for pain. BPs soft this evening, MD did not want to increased percocet frequency at this time. Will continue plan of care.
[2023-07-21 20:28] VITALS: BP 105/77
[2023-07-22 04:28] VITALS: BP 131/67
[2023-07-22 06:01] LABS: Hematocrit 27.4 % (33.0-51.0); Hemoglobin 8.6 g/dL (11.5-16.0); Mean Corpuscular HGB 27.8 pg (26.0-34.0); Mean Corpuscular HGB Conc 31.4 g/dL (31.5-36.5); Mean Corpuscular Volume 89 fL (80-100); Mean Platelet Volume 11.4 fL (9.1-12.4); Platelet Count 102 K/mm3 (150-400); RDW Coefficient Variation 20.8 % (11.7-14.2); RDW Standard Deviation 65.9 fL (35.1-46.3); Red Blood Cell Count 3.09 M/mm3 (3.80-5.20); White Blood Cell Count 3.96 K/mm3 (4.00-11.30)
[2023-07-22 06:24] LABS: Bun/Creatinine Ratio 17.6 (12.0-20.0); Calcium, Blood 8.9 mg/dL (8.5-10.1); Creatinine, Blood 0.68 mg/dL (0.40-1.00); Potassium, Blood 3.5 mmol/L (3.5-5.5)
[2023-07-22 07:38] VITALS: BP 119/73
--- NOTE | 2023-07-22 07:42 | NUR ---
SHIFT SUMMARY ADMITTED FOR PNEUMONIA/SEPSIS/UTI. FULL CODE. DROPLET PRECAUTIONS FOR ESBL IN SPUTUM, URINE, NARES. PLAN IS FOR DC HOME. IV ANTIB RX ARE SCHEDULED. WE ARE DIURESING HER. BLE EDEMA IMPROVING. RECENT DIAGNOSIS OF LUNG CANCER THIS YEAR. HX OF CHEMO AND RADIATION. SHE WILL SEE ONCOLOGY AND PULMONOLOGY OUTPT. TESSALON PEARLS GIVEN FOR FREQUENT COUGH
[2023-07-22 09:04] LABS: BASOPHILS PERCENT MAN 0 % (0-2); EOSINOPHILS PERCENT MAN 0 % (0-6); LYMPHOCYTES % ATYPICAL MANUAL 1 % (0-0); LYMPHOCYTES ABSOLUTE MAN 0.07 K/mm3 (0.84-5.20); LYMPHOCYTES PERCENT MAN 1 % (21-46); METAMYELOCYTE ABSOLUTE MAN 0.03 K/mm3 (0.00-0.00); METAMYELOCYTE PERCENT MAN 1 % (0-0); MONOCYTES ABSOLUTE MAN 0.27 K/mm3 (0.16-1.47); MONOCYTES PERCENT MAN 7 % (4-13); NEUTROPHILS ABSOLUTE MAN 3.56 K/mm3 (1.96-9.15); SEG NEUTROPHILS PERCENT MAN 90 % (41-73); TOTAL CELLS COUNTED 100
[2023-07-22] MEDS ORDERED: SULTRIDS PO (12:10)
--- NOTE | 2023-07-22 13:12 | NUR ---
DISCHARGE SUMMARY: PT DISCHARGED HOME TODAY WITH HOME HEALTH SERVICES. PT ASSISTED WITH PACKING HER BELONGINGS. BROTHER CAME TO PICK HER UP. PT EDUCATED ON DISCHARGE INSTRUCTIONS AND MEDICATIONS. PT LOBO. PT ESCORTED TO POV VIA WHEELCHAIR ESCORT WITH GIGI.
[2023-07-22] MEDS ORDERED: ELIQUIS5 M2 PO (13:20)
== END 2023-07-22 13:05 | disposition home health service (06) | DRG 871 ==
LOC: ER 19:08 → MEDS 19:09
PROVIDERS: Family Medicine; Internal Medicine; Student in an Organized Health Care Education/Training Program; ADMIT Internal Medicine
DX: A41.9 Sepsis, unspecified organism (principal); I50.31 Acute diastolic (congestive) heart failure; J18.9 Pneumonia, unspecified organism; J85.0 Gangrene and necrosis of lung; E87.1 Hypo-osmolality and hyponatremia; J44.0 Chronic obstructive pulmonary disease with (acute) lower respiratory infection; C34.92 Malignant neoplasm of unspecified part of left bronchus or lung; D61.818 Other pancytopenia; G89.4 Chronic pain syndrome; Z51.5 Encounter for palliative care; F41.9 Anxiety disorder, unspecified; I48.0 Paroxysmal atrial fibrillation; E87.6 Hypokalemia; B96.20 Unspecified Escherichia coli [E. coli] as the cause of diseases classified elsewhere; E88.09 Other disorders of plasma-protein metabolism, not elsewhere classified; D63.0 Anemia in neoplastic disease; M54.9 Dorsalgia, unspecified; I11.0 Hypertensive heart disease with heart failure; R13.10 Dysphagia, unspecified; R05.3 Chronic cough; D69.6 Thrombocytopenia, unspecified; Z88.8 Allergy status to other drugs, medicaments and biological substances; Z88.2 Allergy status to sulfonamides; Z88.5 Allergy status to narcotic agent; Z79.51 Long term (current) use of inhaled steroids; Z79.899 Other long term (current) drug therapy; Z79.01 Long term (current) use of anticoagulants; Z79.891 Long term (current) use of opiate analgesic; Z98.890 Other specified postprocedural states; Z90.49 Acquired absence of other specified parts of digestive tract; Z90.710 Acquired absence of both cervix and uterus; Z98.42 Cataract extraction status, left eye; Z98.41 Cataract extraction status, right eye; Z86.16 Personal history of COVID-19; Z87.891 Personal history of nicotine dependence
CPT/HCPCS: 36415; 70470; 71260; 80048; 80053; 80202; 83605; 83735; 83880; 84145; 84484; 85025; 87040; 87070; 87077; 87186; 87205; 93005; 93010; 93308; 93321; 93970; 94640; 94664; 94760; 96365-59; 97116; 97162; 97165; 97530; 97535; 99285-25; A9270; G0378; J0295; J1940; J2185; J2543; J3370; J3475; J7030; J7050; J7626; Q9967

== ENCOUNTER → 2023-07-14 | Outpatient (CLI) | payer MEDICARE, OTHER ==
[~2023-07-14] MED LIST changes: +ALBU2.5V5 INH; +ALPR.25 PO; +AMLODIPINE BESYL5 MG PO; +ATENOLOL25 MG PO; +Acetaminophen650 M1 PO; +BUDESONIDE1 MG/2 M1 INH; +CODEINE-GUAIFE120 M1 PO; +DECADRON6 M1 PO; +Enalapril Malea20 MG PO; +IPRAT-ALBUT 0.5-3 ML INH; -IPRAT-ALBUT 0.5-3 ML NEB; +METO25 PO; -METO25ER PO; +METOPROLOL SUCC25 MG PO; +ONDA8 PO; +OXYCODONE-ACET1 EAC2 PO; +SULTRIDS PO; +TRAZ50 PO
== END ==
LOC: LAB SHORT 11:22 → LAB 11:22
DX: R30.0 Dysuria (principal)
CPT/HCPCS: 87077; 87086; 87186

== ENCOUNTER 2023-08-05 13:29 | Observation (INO) | payer MEDICARE, OTHER ==
[~2023-08-05] VITALS: Ht 152.4 cm; Wt 51.2 kg
[~2023-08-05 13:29] MED LIST changes: +ALBU2.5V5 INH; +ALPR.25 PO; +AMLODIPINE BESYL5 MG PO; +ATENOLOL25 MG PO; +Acetaminophen650 M1 PO; +BUDESONIDE1 MG/2 M1 INH; +CODEINE-GUAIFE120 M1 PO; +Enalapril Malea20 MG PO; +GABA300 PO; +METOPROLOL SUCC25 MG PO; +ONDA8 PO; +OXYCODONE-ACET1 EAC2 PO; +SULTRIDS PO; +TRAZ50 PO
[2023-08-05 14:13] LABS: BASOPHILS ABSOLUTE AUTO 0.01 K/mm3 (0.00-0.23); BASOPHILS PERCENT AUTO 0 % (0-2); EOSINOPHILS PERCENT AUTO 0 % (0-6); Hematocrit 28.3 % (33.0-51.0); Hemoglobin 8.7 g/dL (11.5-16.0); IMMATURE GRAN ABSOLUTE AUTO 0.04 K/mm3 (0.00-0.10); IMMATURE GRAN PERCENT AUTO 1 % (0-1); LYMPHOCYTES ABSOLUTE AUTO 0.32 K/mm3 (0.84-5.20); LYMPHOCYTES PERCENT AUTO 5 % (21-46); MONOCYTES ABSOLUTE AUTO 0.77 K/mm3 (0.16-1.47); MONOCYTES PERCENT AUTO 12 % (4-13); Mean Corpuscular HGB 28.3 pg (26.0-34.0); Mean Corpuscular HGB Conc 30.7 g/dL (31.5-36.5); Mean Corpuscular Volume 92 fL (80-100); Mean Platelet Volume 10.7 fL (9.1-12.4); NEUTROPHILS ABSOLUTE AUTO 5.06 K/mm3 (1.96-9.15); NEUTROPHILS PERCENT AUTO 82 % (41-73); Platelet Count 156 K/mm3 (150-400); RDW Coefficient Variation 22.4 % (11.7-14.2); RDW Standard Deviation 74.5 fL (35.1-46.3); Red Blood Cell Count 3.07 M/mm3 (3.80-5.20)
[2023-08-05 14:28] LABS: Albumin, Blood 2.2 g/dL (3.4-5.0); Albumin/Globulin Ratio 0.4 (0.8-1.8); Bilirubin, Total 0.6 mg/dL (0.1-1.0); Bun/Creatinine Ratio 21.4 (12.0-20.0); Creatinine, Blood 0.75 mg/dL (0.40-1.00); Globulin, Blood 5.3 g/dL (2.2-4.0); Potassium, Blood 3.2 mmol/L (3.5-5.5); Total Protein, Blood 7.5 g/dL (6.4-8.2)
[2023-08-05 21:36] VITALS: BP 116/68
--- NOTE | 2023-08-05 21:55 | NUR ---
MD CALL PLACED CALL TO BEHZAD BAER TO NOTIFY OF TELE REPORT. PT IS GENERALLY A FIB WITH HR 110'S TO 120'S ON A CARDIZEM GTT AT 15 MG/HR. HOWEVER, THERE ARE OCCASSIONAL PERIODS OF APPROX 5 SECONDS WITH A 2ND DEGREE TYPE 1 BLOCK NOTED AND THEN A RETURN TO AFIB. CLARIFIED ORDER FOR CARDIZEM AND PLAN IS STILL TO CONTINUE THE DRIP UNTIL HEART RATE CONTROL IS ACHIEVED. NOTIFIED PRIMARY RN LA AND WILL CONTINUE TO MONITOR.
[2023-08-06 00:15] VITALS: BP 106/59
[2023-08-06 03:21] VITALS: BP 120/65
[2023-08-06 04:20] LABS: Hematocrit 27.1 % (33.0-51.0); Hemoglobin 8.2 g/dL (11.5-16.0); Mean Corpuscular HGB Conc 30.3 g/dL (31.5-36.5); Mean Corpuscular Volume 93 fL (80-100); Mean Platelet Volume 10.4 fL (9.1-12.4); Platelet Count 131 K/mm3 (150-400); RDW Coefficient Variation 22.1 % (11.7-14.2); RDW Standard Deviation 74.4 fL (35.1-46.3); Red Blood Cell Count 2.93 M/mm3 (3.80-5.20); White Blood Cell Count 5.65 K/mm3 (4.00-11.30)
[2023-08-06 04:41] LABS: Bun/Creatinine Ratio 23.9 (12.0-20.0); Calcium, Blood 8.9 mg/dL (8.5-10.1); Creatinine, Blood 0.63 mg/dL (0.40-1.00); Magnesium, Blood 1.8 mg/dL (1.6-2.4); Potassium, Blood 3.7 mmol/L (3.5-5.5)
--- NOTE | 2023-08-06 06:36 | NUR ---
SHIFT SUMMARY A/OX4, SBA TO BSC. CALLS APPROPRIATELY. DENIES CHEST PAIN/SOB. TELE SR 90-120S WITH PAC'S. CARDIZEM GTT RUNNING AT 15. SPO2 >92% ON RA, WET/COARSE LUNG SOUNDS NOTED T/O. VSS, NO ACUTE CHANGES AT THIS TIME. BED IN LOWEST POSITION WITH CALL LIGHT IN REACH. WILL CONTINUE TO MONITOR AND REPORT TO ONCOMING RN.
[2023-08-06 08:42] VITALS: BP 102/80
[2023-08-06 11:11] VITALS: BP 97/61
[2023-08-06] MEDS ORDERED: METO25ER PO (13:06)
--- NOTE | 2023-08-06 13:58 | NUR ---
DISCHARGE: PT D/C PCU 15 @1359 VIA WHEECHAIR. DISCHARGE INSTRUCTION AND EDUCATION PROVIDED. ALL BELONGINGS WITH PT.
== END 2023-08-06 13:55 | disposition home or self-care (01) ==
LOC: ER 13:29 → PCU 13:30
PROVIDERS: Nurse Practitioner Acute Care; Physician Assistant; ADMIT Internal Medicine
DX: I48.91 Unspecified atrial fibrillation (principal); F17.210 Nicotine dependence, cigarettes, uncomplicated; E87.6 Hypokalemia; C34.92 Malignant neoplasm of unspecified part of left bronchus or lung; G89.29 Other chronic pain; J44.9 Chronic obstructive pulmonary disease, unspecified; K21.9 Gastro-esophageal reflux disease without esophagitis; I11.0 Hypertensive heart disease with heart failure; I50.30 Unspecified diastolic (congestive) heart failure; F41.9 Anxiety disorder, unspecified; Z79.899 Other long term (current) drug therapy; Z88.8 Allergy status to other drugs, medicaments and biological substances
CPT/HCPCS: 36415; 71046; 80048; 80053; 83735; 85025; 85027; 93005; 93010; 94640; 94664; 94760; 96365; 96366; 96376; 99285-25; A9270; G0378; J7626

== ENCOUNTER 2023-08-10 09:25 | Emergency (ER) | payer MEDICARE, OTHER ==
[~2023-08-10] VITALS: Ht 152.4 cm; Wt 49.9 kg
[~2023-08-10 09:25] MED LIST changes: +METO25ER PO
[2023-08-10 10:08] LABS: BASOPHILS ABSOLUTE AUTO 0.02 K/mm3 (0.00-0.23); BASOPHILS PERCENT AUTO 0 % (0-2); EOSINOPHILS ABSOLUTE AUTO 0.02 K/mm3 (0.00-0.68); EOSINOPHILS PERCENT AUTO 0 % (0-6); Hematocrit 29.9 % (33.0-51.0); Hemoglobin 9.2 g/dL (11.5-16.0); IMMATURE GRAN ABSOLUTE AUTO 0.02 K/mm3 (0.00-0.10); IMMATURE GRAN PERCENT AUTO 0 % (0-1); LYMPHOCYTES ABSOLUTE AUTO 0.24 K/mm3 (0.84-5.20); LYMPHOCYTES PERCENT AUTO 4 % (21-46); MONOCYTES ABSOLUTE AUTO 0.65 K/mm3 (0.16-1.47); MONOCYTES PERCENT AUTO 10 % (4-13); Mean Corpuscular HGB 28.4 pg (26.0-34.0); Mean Corpuscular HGB Conc 30.8 g/dL (31.5-36.5); Mean Corpuscular Volume 92 fL (80-100); Mean Platelet Volume 10.5 fL (9.1-12.4); NEUTROPHILS ABSOLUTE AUTO 5.65 K/mm3 (1.96-9.15); NEUTROPHILS PERCENT AUTO 86 % (41-73); Platelet Count 215 K/mm3 (150-400); RDW Coefficient Variation 21.6 % (11.7-14.2); RDW Standard Deviation 72.6 fL (35.1-46.3); Red Blood Cell Count 3.24 M/mm3 (3.80-5.20)
[2023-08-10 10:46] LABS: Albumin, Blood 2.2 g/dL (3.4-5.0); Albumin/Globulin Ratio 0.4 (0.8-1.8); Bilirubin, Total 0.5 mg/dL (0.1-1.0); Bun/Creatinine Ratio 18.5 (12.0-20.0); Creatinine, Blood 0.49 mg/dL (0.40-1.00); Globulin, Blood 5.1 g/dL (2.2-4.0); Potassium, Blood 2.9 mmol/L (3.5-5.5); Total Protein, Blood 7.3 g/dL (6.4-8.2)
[2023-08-10 15:34] VITALS: BP 142/90
== END 2023-08-10 15:39 | disposition home or self-care (01) ==
LOC: ER 09:25
PROVIDERS: Physician Assistant
DX: K52.1 Toxic gastroenteritis and colitis (principal); T36.95XA Adverse effect of unspecified systemic antibiotic, initial encounter; E87.6 Hypokalemia; E86.1 Hypovolemia; E86.0 Dehydration; C34.90 Malignant neoplasm of unspecified part of unspecified bronchus or lung; J44.9 Chronic obstructive pulmonary disease, unspecified; I10 Essential (primary) hypertension; Z88.5 Allergy status to narcotic agent; Z79.899 Other long term (current) drug therapy; Z79.01 Long term (current) use of anticoagulants; Z79.51 Long term (current) use of inhaled steroids
CPT/HCPCS: 74177; 80053; 83690; 85025; 93005; 93010; 96361; 96365; 96366; 96375; 99284-25; A9270; J2405; J3480; J7030; Q9967

== ENCOUNTER 2023-08-18 08:44 | Emergency (ER) | payer MEDICARE, OTHER ==
[~2023-08-18] VITALS: Ht 152.4 cm; Wt 52.2 kg
[2023-08-18 09:54] LABS: BASOPHILS ABSOLUTE AUTO 0.02 K/mm3 (0.00-0.23); BASOPHILS PERCENT AUTO 0 % (0-2); EOSINOPHILS PERCENT AUTO 0 % (0-6); Hematocrit 30.9 % (33.0-51.0); Hemoglobin 9.7 g/dL (11.5-16.0); IMMATURE GRAN ABSOLUTE AUTO 0.07 K/mm3 (0.00-0.10); IMMATURE GRAN PERCENT AUTO 1 % (0-1); LYMPHOCYTES ABSOLUTE AUTO 0.24 K/mm3 (0.84-5.20); LYMPHOCYTES PERCENT AUTO 2 % (21-46); MONOCYTES ABSOLUTE AUTO 0.83 K/mm3 (0.16-1.47); MONOCYTES PERCENT AUTO 6 % (4-13); Mean Corpuscular HGB 29.1 pg (26.0-34.0); Mean Corpuscular HGB Conc 31.4 g/dL (31.5-36.5); Mean Corpuscular Volume 93 fL (80-100); Mean Platelet Volume 9.9 fL (9.1-12.4); NEUTROPHILS ABSOLUTE AUTO 11.96 K/mm3 (1.96-9.15); NEUTROPHILS PERCENT AUTO 91 % (41-73); Platelet Count 363 K/mm3 (150-400); RDW Coefficient Variation 21.6 % (11.7-14.2); RDW Standard Deviation 73.2 fL (35.1-46.3); Red Blood Cell Count 3.33 M/mm3 (3.80-5.20); White Blood Cell Count 13.12 K/mm3 (4.00-11.30)
[2023-08-18 10:24] LABS: Albumin, Blood 1.9 g/dL (3.4-5.0); Albumin/Globulin Ratio 0.3 (0.8-1.8); Bilirubin, Total 0.7 mg/dL (0.1-1.0); Bun/Creatinine Ratio 16.4 (12.0-20.0); Calcium, Blood 8.4 mg/dL (8.5-10.1); Creatinine, Blood 0.49 mg/dL (0.40-1.00); Globulin, Blood 5.5 g/dL (2.2-4.0); Potassium, Blood 2.8 mmol/L (3.5-5.5); Total Protein, Blood 7.4 g/dL (6.4-8.2)
[2023-08-18 12:11] LABS: Influenza A, PCR NEGATIVE (NEGATIVE); Influenza B, PCR NEGATIVE (NEGATIVE); Resp Syncytial Virus, PCR NEGATIVE (NEGATIVE); SARS-Cov-2 (COVID-19) PCR, MMC NEGATIVE (NEGATIVE)
[2023-08-18] MEDS ORDERED: POTA10T PO (13:52)
[2023-08-18] MEDS ORDERED: DOXY100 PO (13:52)
[2023-08-18 15:30] VITALS: BP 141/102
== END 2023-08-18 17:02 | disposition home or self-care (01) ==
LOC: ER 08:44
PROVIDERS: Emergency Medicine; Physician Assistant
DX: J18.9 Pneumonia, unspecified organism (principal); E87.6 Hypokalemia; C34.92 Malignant neoplasm of unspecified part of left bronchus or lung; J44.9 Chronic obstructive pulmonary disease, unspecified; I48.91 Unspecified atrial fibrillation; I10 Essential (primary) hypertension; Z88.5 Allergy status to narcotic agent; Z79.899 Other long term (current) drug therapy; Z79.51 Long term (current) use of inhaled steroids; Z79.01 Long term (current) use of anticoagulants
CPT/HCPCS: 0241U; 71260; 80053; 83690; 85025; 93005; 93010; 96365; 96366; 96368; 99284-25; J0696; J3480; J7030; J7050; Q9967

== ENCOUNTER 2023-09-18 08:51 | Inpatient (IN) | payer MEDICARE, OTHER ==
[~2023-09-18] VITALS: Ht 160 cm; Wt 56.7 kg
[~2023-09-18 08:51] MED LIST changes: +DOXY100 PO; +POTA10T PO
[2023-09-18 09:43] LABS: BASOPHILS ABSOLUTE AUTO 0.02 K/mm3 (0.00-0.23); BASOPHILS PERCENT AUTO 0 % (0-2); EOSINOPHILS ABSOLUTE AUTO 0.01 K/mm3 (0.00-0.68); EOSINOPHILS PERCENT AUTO 0 % (0-6); Hematocrit 29.8 % (33.0-51.0); Hemoglobin 9.2 g/dL (11.5-16.0); IMMATURE GRAN ABSOLUTE AUTO 0.04 K/mm3 (0.00-0.10); IMMATURE GRAN PERCENT AUTO 1 % (0-1); LYMPHOCYTES ABSOLUTE AUTO 0.19 K/mm3 (0.84-5.20); LYMPHOCYTES PERCENT AUTO 3 % (21-46); MONOCYTES PERCENT AUTO 7 % (4-13); Mean Corpuscular HGB 30.4 pg (26.0-34.0); Mean Corpuscular HGB Conc 30.9 g/dL (31.5-36.5); Mean Corpuscular Volume 98 fL (80-100); Mean Platelet Volume 10.9 fL (9.1-12.4); NEUTROPHILS PERCENT AUTO 90 % (41-73); Platelet Count 243 K/mm3 (150-400); RDW Coefficient Variation 21.5 % (11.7-14.2); RDW Standard Deviation 76.7 fL (35.1-46.3); Red Blood Cell Count 3.03 M/mm3 (3.80-5.20); White Blood Cell Count 7.26 K/mm3 (4.00-11.30)
[2023-09-18 10:02] LABS: Albumin, Blood 2.2 g/dL (3.4-5.0); Albumin/Globulin Ratio 0.4 (0.8-1.8); Bilirubin, Total 0.7 mg/dL (0.1-1.0); Bun/Creatinine Ratio 22.6 (12.0-20.0); Calcium, Blood 8.6 mg/dL (8.5-10.1); Creatinine, Blood 0.57 mg/dL (0.40-1.00); Globulin, Blood 5.5 g/dL (2.2-4.0); Potassium, Blood 3.1 mmol/L (3.5-5.5); Total Protein, Blood 7.7 g/dL (6.4-8.2)
[2023-09-18 10:48] LABS: Influenza A, PCR NEGATIVE (NEGATIVE); Influenza B, PCR NEGATIVE (NEGATIVE); Resp Syncytial Virus, PCR NEGATIVE (NEGATIVE); SARS-Cov-2 (COVID-19) PCR, MMC NEGATIVE (NEGATIVE)
[2023-09-18 13:50] VITALS: BP 142/92
[2023-09-18 15:52] VITALS: BP 138/92
[2023-09-18 16:47] LABS: Acinetobacter baumannii DNA Not Detected copy/mL (NOT DETECT); Enterobacter cloacae DNA Not Detected copy/mL (NOT DETECT); Escherichia coli DNA Detected Bin >=10^7 copy/mL (NOT DETECT); Haemophilus influenzae DNA Not Detected copy/mL (NOT DETECT); Klebsiella aerogenes DNA Not Detected copy/mL (NOT DETECT); Klebsiella oxytoca DNA Not Detected copy/mL (NOT DETECT); Klebsiella pneumoniae DNA Not Detected copy/mL (NOT DETECT); Moraxella catarrhalis DNA Not Detected copy/mL (NOT DETECT); Proteus sp DNA Not Detected copy/mL (NOT DETECT); Pseudomonas aeruginosa DNA Not Detected copy/mL (NOT DETECT); Serratia marcescens DNA Detected Bin 10^6 copy/mL (NOT DETECT); Staphylococcus aureus DNA Not Detected copy/mL (NOT DETECT); Streptococcus agalactiae DNA Not Detected copy/mL (NOT DETECT); Streptococcus pneumoniae DNA Not Detected copy/mL (NOT DETECT); Streptococcus pyogenes DNA Not Detected copy/mL (NOT DETECT)
[2023-09-18 16:48] LABS: Adenovirus DNA Not Detected (NOT DETECT); CTX-M Resistance Gene Detected; Chlamydia pneumonia Not Detected (NOT DETECT); Human Coronavirus RNA Not Detected (NOT DETECT); Human Metapneumovirus RNA Not Detected (NOT DETECT); IMP Resistance Gene Not Detected; Influenza virus A RNA Not Detected (NOT DETECT); Influenza virus B RNA Not Detected (NOT DETECT); KPC Resistance Gene Not Detected; Legionella pneumophila Not Detected (NOT DETECT); Mycoplasma pneumoniae Not Detected (NOT DETECT); NDM Resistance Gene Not Detected; OXA-48-like Resistance Gene Not Detected; Parainfluenza virus RNA Not Detected (NOT DETECT); Respiratory syncytial Vir RNA Not Detected (NOT DETECT); Rhinovirus+Enterovirus RNA Not Detected (NOT DETECT); VIM Resistance Gene Not Detected
[2023-09-18] MEDS ORDERED: Brovana15 MCG/2 M INH (17:40)
--- NOTE | 2023-09-18 18:24 | NUR ---
PT ARRIVED TO PCU 14 VIA GURNEY FROM ER APROX 1330 THIS AFTERNOON. PT ABLE TO STAND AND PIVOT FROM GURNEY TO BED, GAMBLE NOTED, MOIST CONGESTED COUGH. LUNG SOUNDS ARE COARSE T/O WITH FINE CRACKLES TO BASES. PT IS ON 4L O2 VIA NC. SEE DOCUMENTED VS AND ASSESSMENT FOR DETAILS. POTASSIUM CHLORIDE SENT UP WITH PT FROM ER. PER EMAR AZITHROMYCIN WAS NOT GIVEN IN ER. POWERGLIDE PLACED TO UZMA D/T DIFFICULT IV ACCESS. PT A&OX4, ABLE TO USE CALL LIGHT FOR NEEDS. ORIENTED TO ROOM, CALL LIGHT AND UNIT ROUTINES. DR ALATORRE NOTIFIED OF SPUTUM RESULTS, AND THIS RN REQUESTED CHANGES TO BREATHING TREATMENTS AND ANXIETY MEDICATION FOR PT IT APPEARS TO BE PART OF HER RESPIRATORY DISTRESS. NEW ORDERS RECEIVED. WILL CONTINUE TO MONITOR/TREAT AND GIVE REPORT TO ONCOMING NOC SHIFT RN.
[2023-09-18 19:41] VITALS: BP 123/84
[2023-09-19 00:29] VITALS: BP 122/88
[2023-09-19 05:17] VITALS: BP 122/84
--- NOTE | 2023-09-19 05:30 | NUR ---
SHIFT SUMMARY VSS, RR NOTED TO BE ELEVATED. LUNG SOUNDS ARE EXTREMELY COARSE T/O. PT REPORTS ONGOING SOB, BUT IMPROVEMENT WITH PRN BREATHING TX'S. NOTED TO BE COUGHING UP LARGE AMOUNTS OF SPUTUM. PT REMAINS ON 2L VIA NC. TELE READS SINUS TACH 100-110'S. NOTED TO ELEVATED W/ ACTIVITY, DID NOT REQUIRE PRN'S FOR RATE CONTROL T/O THE NIGHT. AMBULATED TO BSC MULTIPLE TIMES T/O THE NIGHT TO VOID, NO BM'S NOTED. TOLLERATED PO INTAKE W/O N/V. LARGE REDDENED AREA ON COCCYX NOTED, MEPILEX APPLIED. PT TOOK ATARAX ONCE AT THE BEGINNING OF THE NIGHT AND REPORTED IT HELPED HER FEEL LESS ANXIOUS AND REST BETTER. OVERALL, NO ACUTE EVENTS NOTED.
[2023-09-19 06:01] LABS: Bun/Creatinine Ratio 22.9 (12.0-20.0); Calcium, Blood 8.6 mg/dL (8.5-10.1); Creatinine, Blood 0.53 mg/dL (0.40-1.00); Potassium, Blood 2.9 mmol/L (3.5-5.5)
[2023-09-19] MEDS ORDERED: GABA100 PO (07:54)
[2023-09-19] MEDS ORDERED: NEURONTIN300 MG PO (07:54)
[2023-09-19 07:59] VITALS: BP 144/80
--- NOTE | 2023-09-19 15:30 | NUR ---
ASSUMED CARE OF PT AT 0700 THIS AM. SEE DOCUMENTED VS AND ASSESSMENT. PT BECOMES VERY ANXIOUS WHEN OOB BECAUSE OF SOB. MEDICATED PER PER ORDERS FOR PAIN AND ANXIETY. FLUTTER VALVE AND GUIFENESIN ORDERED THIS MORNING TO HELP WITH SECREATIONS. THIS RN ROUNDED WITH DR ALATORRE THIS AM. PT'S HR APPEARS TO BE WELL CONTROLLED TODAY, SPO2 97-98% ON 2L VIA NC. DUE TO ANXIETY PT DECLINES HAVING O2 TURNED OFF. PT'S SISTER AT BEDSIDE THIS AFTERNOON, UPDATE GIVEN, AND PT IS TRANSPORTED TO [facility], MEDICAL TELE STATUS. ALL BELONGINGS SENT WITH PT TO NEW ROOM. FAMILY IS AT BEDSIDE AND IS AWARE OF THE TRANSFER. REPORT GIVEN TO VIVEK CARTER WHO IS ASSUMING CARE AT THIS TIME.
[2023-09-19 15:57] VITALS: BP 105/88
[2023-09-19 19:44] VITALS: BP 105/86
--- NOTE | 2023-09-19 20:18 | NUR ---
1510- PT TX FROM PCU 14 TO ROOM 357, BED SWAB. PT ORIENTED TO ROOM SET UP, CALL LIGHT AND SAFETY. RESP EVEN UNLABORED, O2 2L NC. PLACED ON DROPLET PRECAUTIONS. WILL CARE FOR REMAINDER OF SHIFT
--- NOTE | 2023-09-19 20:20 | NUR ---
SUMMARY- PT A/O X3. USES CALL LIGHT. RESP EVEN UNLABOERD. PT'S SATS 94% ROOM AIR BUT INSISTS ON KEEPING OXYGEN ON FOR COMFORT. PT HAS UNDERLINE ANXIETY, ATARAX HEPLFUL PRN. CHRONIC BACK PAIN CONTROLLED WITH PRN NORCO. PT DIURESING ON IV LASIZ. HAS NOT HAD TO VOID SINCE PCU TX 1500. TOLERATING FOOD AND FLUID, FEEDS SELF. MEPILEX INTACT TO GLUT. REPORTED TO NOC RN CAT
[2023-09-20 03:51] VITALS: BP 110/76
--- NOTE | 2023-09-20 04:59 | NUR ---
SHIFT SUMMARY PT A&OX3 AND ANSWERS QUESTIONS APPROPRIATELY. PT ANXIOUS AND MEDICATED FOR ANXIETY PER EMAR. PT CONTINENT TO THE BSC W/ 1P ASSIST. PT MEDICATED FOR PAIN PER EMAR. PT SLEPT MOST OF SHIFT WITH EVEN, UNLABOURED RESPIRATIONS. VSS. NO ACUTE EVENTS AT THIS TIME. PT LEFT IN A POSITION OF SAFETY WITH FALL PRECAUTIONS IN PLACE AND CALL LIGHT WITHIN REACH.
[2023-09-20 06:01] LABS: Bun/Creatinine Ratio 24.7 (12.0-20.0); Calcium, Blood 8.7 mg/dL (8.5-10.1); Creatinine, Blood 0.73 mg/dL (0.40-1.00); Potassium, Blood 3.9 mmol/L (3.5-5.5)
[2023-09-20 07:51] VITALS: BP 107/74
[2023-09-20 14:40] VITALS: BP 117/81
--- NOTE | 2023-09-20 15:59 | NUR ---
SHIFT SUMMARY A&OX3-4, COOPERATIVE WITH CARE. COMPLAINED OF 7-8/10 PAIN TO LOW BACK AND BUTTOCKS T/O SHIFT. MEDICATED WITH NORCO AND TYLENOL PER EMAR PROTOCOL. LUNGS SOUND DIMINISHED WITH FINE CRACKLES IN THE BASES. SPUTUM SAMPLE COLLECTED - PRELIM RESULTS "FEW GRAM (-) BACILLI". NO ACUTE CHANGES THIS SHIFT. DENIED ANY CP/PRESSURE, HEADACHE, OR DIZZNESS. SOB AT BASELINE. CURRENTLY ON 2L O2 VIA NC WITH O2 SATS MID 90'S. TELE REPORTS NSR WITH FREQUENT NONCONDUCTED PAC'S IN THE 80'S. PATIENT IS CURRENTLY RESTING. BED IN LOWEST POSITION. CALL LIGHT WITHIN REACH.
--- NOTE | 2023-09-20 16:28 | NUR ---
Spiritual care visit conducted. Patient is lying in bed and alert. She tells me about her garcia with lung cancer, her current treatment of chemo/radiation and her struggle to keep up with it. She also talks about the of her spouse and her son, the strong family and bety support she has and her inner strength to keep pushing through the setbacks. I provide therapeutic listening, recitation of scripture and prayer. Patient responded well and showed signs of greater peace. I will continue to remain available to patient and family.
[2023-09-20 19:22] VITALS: BP 116/81
--- NOTE | 2023-09-21 04:08 | NUR ---
SHIFT SUMMARY ADMITTED FOR PNEUMONIA IN RIGHT UPPER LOBE. FULL CODE. DROPLET PRECUTIONS OF ESBL IN URINE/SPUTUM. IV ANTIB RX ARE SCHEDULED. POWERGLIDE IN LUE. TELEMETRY: NSR W/PAC'S @ 102 BPM. SHE IS ON 2 LPM O2, ROOM AIR IS BASELINE. SHE IS A STANDBY ASSIST TO BSC. MEDIPORT IN RIGHT UPPER CHEST. HX OF LUNG CANCER.
[2023-09-21 04:53] VITALS: BP 116/76
[2023-09-21 05:58] LABS: BASOPHILS ABSOLUTE AUTO 0.02 K/mm3 (0.00-0.23); BASOPHILS PERCENT AUTO 0 % (0-2); EOSINOPHILS ABSOLUTE AUTO 0.03 K/mm3 (0.00-0.68); EOSINOPHILS PERCENT AUTO 1 % (0-6); Hematocrit 28.6 % (33.0-51.0); Hemoglobin 8.7 g/dL (11.5-16.0); IMMATURE GRAN ABSOLUTE AUTO 0.03 K/mm3 (0.00-0.10); IMMATURE GRAN PERCENT AUTO 1 % (0-1); LYMPHOCYTES ABSOLUTE AUTO 0.27 K/mm3 (0.84-5.20); LYMPHOCYTES PERCENT AUTO 5 % (21-46); MONOCYTES PERCENT AUTO 10 % (4-13); Mean Corpuscular HGB 30.3 pg (26.0-34.0); Mean Corpuscular HGB Conc 30.4 g/dL (31.5-36.5); Mean Corpuscular Volume 100 fL (80-100); Mean Platelet Volume 10.8 fL (9.1-12.4); NEUTROPHILS ABSOLUTE AUTO 4.94 K/mm3 (1.96-9.15); NEUTROPHILS PERCENT AUTO 84 % (41-73); NRBC ABSOLUTE 0.02 K/mm3 (0.00-0.02); NRBC Auto 0.3 /100 WBC (0.0-0.2); Platelet Count 180 K/mm3 (150-400); RDW Coefficient Variation 21.8 % (11.7-14.2); RDW Standard Deviation 79.4 fL (35.1-46.3); Red Blood Cell Count 2.87 M/mm3 (3.80-5.20); White Blood Cell Count 5.89 K/mm3 (4.00-11.30)
[2023-09-21 06:41] LABS: Bun/Creatinine Ratio 27.5 (12.0-20.0); Calcium, Blood 8.8 mg/dL (8.5-10.1); Creatinine, Blood 0.87 mg/dL (0.40-1.00); Potassium, Blood 4.3 mmol/L (3.5-5.5)
[2023-09-21 06:47] LABS: BASOPHILS PERCENT MAN 0 % (0-2); EOSINOPHILS PERCENT MAN 0 % (0-6); LYMPHOCYTES ABSOLUTE MAN 0.47 K/mm3 (0.84-5.20); LYMPHOCYTES PERCENT MAN 8 % (21-46); MONOCYTES ABSOLUTE MAN 0.23 K/mm3 (0.16-1.47); MONOCYTES PERCENT MAN 4 % (4-13); NEUTROPHILS ABSOLUTE MAN 5.18 K/mm3 (1.96-9.15); SEG NEUTROPHILS PERCENT MAN 88 % (41-73); TOTAL CELLS COUNTED 100
[2023-09-21 07:43] VITALS: BP 114/81
[2023-09-21 15:30] VITALS: BP 93/67
[2023-09-21 18:14] VITALS: BP 115/75
--- NOTE | 2023-09-21 18:32 | NUR ---
SHIFT SUMMARY PT AOX4. 1 ASSIST WITH THE FWW TO THE BR. PT SLEPT MOST OF THE SHIFT, MEDICATED FOR PAIN PER THE EMAR. NO OTHER COMPLAINTS. PT UP TO THE CHAIR FOR LUNCH AND TOLERATED IT WELL. NO EVENTS PER TELE. CALL LIGHT WITHIN REACH, BED IN THE LOWEST POSITION. WILL REPORT TO ONCOMING NURSE.
[2023-09-21 20:15] VITALS: BP 107/73
[2023-09-22 02:22] VITALS: BP 123/77
--- NOTE | 2023-09-22 04:53 | NUR ---
SHIFT SUMMARY 73 YR F ADMITTED ON 09/18/23. FULL CODE. NO ACUTE CHANGES THIS SHIFT. PT C/O LOWER BACK PAIN AND MEDICATED PER EMAR. SHE HAS SLEPT FOR MOST OF THIS SHIFT. NO CARDIAC EVENTS PER RUBBER FACTORY WORKER. CALLS APPROPRIATELY FOR ASSISTANCE TO BATHROOM AND GETS SOB W/ AMBULATION. POWERGLIDE IN LEFT UPPER ARM FLUSHES AND DRAWS WELL. BED IN LOW POSITION AND CALL LIGHT IN REACH.
[2023-09-22 05:02] LABS: BASOPHILS ABSOLUTE AUTO 0.02 K/mm3 (0.00-0.23); BASOPHILS PERCENT AUTO 0 % (0-2); EOSINOPHILS ABSOLUTE AUTO 0.05 K/mm3 (0.00-0.68); EOSINOPHILS PERCENT AUTO 1 % (0-6); Hematocrit 25.8 % (33.0-51.0); IMMATURE GRAN ABSOLUTE AUTO 0.03 K/mm3 (0.00-0.10); IMMATURE GRAN PERCENT AUTO 0 % (0-1); LYMPHOCYTES ABSOLUTE AUTO 0.27 K/mm3 (0.84-5.20); LYMPHOCYTES PERCENT AUTO 3 % (21-46); MONOCYTES ABSOLUTE AUTO 0.78 K/mm3 (0.16-1.47); MONOCYTES PERCENT AUTO 10 % (4-13); Mean Corpuscular HGB 30.9 pg (26.0-34.0); Mean Corpuscular Volume 100 fL (80-100); Mean Platelet Volume 11.1 fL (9.1-12.4); NEUTROPHILS ABSOLUTE AUTO 6.77 K/mm3 (1.96-9.15); NEUTROPHILS PERCENT AUTO 86 % (41-73); NRBC ABSOLUTE 0.02 K/mm3 (0.00-0.02); NRBC Auto 0.3 /100 WBC (0.0-0.2); Platelet Count 186 K/mm3 (150-400); RDW Coefficient Variation 21.8 % (11.7-14.2); RDW Standard Deviation 77.5 fL (35.1-46.3); Red Blood Cell Count 2.59 M/mm3 (3.80-5.20); White Blood Cell Count 7.92 K/mm3 (4.00-11.30)
[2023-09-22 05:37] LABS: Calcium, Blood 8.6 mg/dL (8.5-10.1); Creatinine, Blood 0.96 mg/dL (0.40-1.00); Potassium, Blood 4.8 mmol/L (3.5-5.5)
[2023-09-22 07:36] VITALS: BP 99/63
[2023-09-22 08:37] VITALS: BP 102/73
[2023-09-22 16:25] VITALS: BP 104/72
--- NOTE | 2023-09-22 17:46 | NUR ---
SHIFT SUMMARY PT AOX4, I ASSIST WITH THE FWW TO THE BR. PT CALLS AND MAKES HER NEEDS KNOWN. MEDICATED FOR PAIN PER THE EMAR. PLAN IS FOR THE PT TO POTENTIALLY DC TO A SNIF TO RESUME IV ANTIBIOTICS. THE PROVIDER DISCUSSED THESE OPTIONS WITH THE PT AND HER BROTHER. PT RESPOSITIONED Q2, PRN IF NEEDED. THIS NURSE OFFERED HER COUGH SYRUP PER THE EMAR THIS SHIFT AND THE PT REFUSED. CALL LIGHT WITHIN REACH, BED IN THE LOWEST POSITION. WILL REPORT TO ONCOMING NURSE.
--- NOTE | 2023-09-22 17:48 | NUR ---
The patient didn't wish to discuss Code Status today, but she is going to SNF and hopeful she will be more willing to address this in time.
[2023-09-22 19:35] VITALS: BP 120/80
[2023-09-23 02:26] VITALS: BP 121/91
--- NOTE | 2023-09-23 06:11 | NUR ---
SHIFT SUMMARY 73 YR F ADMITTED ON 09/18/23. FULL CODE. NO ACUTE CHANGES THIS SHIFT. PT HAS SLEPT FOR MOST OF THIS SHIFT. SHE CALLS APPROPRIATELY FOR ASSISTANCE TO THE BATHROOM AND IS CONTINENT. LUNG SOUND ARE VERY COURSE AND BREATHING IS LABORED. PT IS WEAK AND STATES SHE FEELS AWFUL. NO C/O SOB, N/V, OR CHEST PAIN. BED IN LOW POSITION AND CALL LIGHT IN REACH.
[2023-09-23 07:23] VITALS: BP 122/93
[2023-09-23 08:24] LABS: BASOPHILS ABSOLUTE AUTO 0.03 K/mm3 (0.00-0.23); BASOPHILS PERCENT AUTO 0 % (0-2); EOSINOPHILS ABSOLUTE AUTO 0.08 K/mm3 (0.00-0.68); EOSINOPHILS PERCENT AUTO 1 % (0-6); Hematocrit 26.5 % (33.0-51.0); Hemoglobin 8.2 g/dL (11.5-16.0); IMMATURE GRAN ABSOLUTE AUTO 0.04 K/mm3 (0.00-0.10); IMMATURE GRAN PERCENT AUTO 1 % (0-1); LYMPHOCYTES ABSOLUTE AUTO 0.21 K/mm3 (0.84-5.20); LYMPHOCYTES PERCENT AUTO 3 % (21-46); MONOCYTES ABSOLUTE AUTO 0.61 K/mm3 (0.16-1.47); MONOCYTES PERCENT AUTO 8 % (4-13); Mean Corpuscular HGB 31.1 pg (26.0-34.0); Mean Corpuscular HGB Conc 30.9 g/dL (31.5-36.5); Mean Corpuscular Volume 100 fL (80-100); Mean Platelet Volume 10.7 fL (9.1-12.4); NEUTROPHILS ABSOLUTE AUTO 6.36 K/mm3 (1.96-9.15); NEUTROPHILS PERCENT AUTO 87 % (41-73); Platelet Count 163 K/mm3 (150-400); RDW Coefficient Variation 22.4 % (11.7-14.2); RDW Standard Deviation 79.8 fL (35.1-46.3); Red Blood Cell Count 2.64 M/mm3 (3.80-5.20); White Blood Cell Count 7.33 K/mm3 (4.00-11.30)
[2023-09-23 08:43] LABS: BASOPHILS PERCENT MAN 0 % (0-2); EOSINOPHILS ABSOLUTE MAN 0.07 K/mm3 (0.00-0.68); EOSINOPHILS PERCENT MAN 1 % (0-6); LYMPHOCYTES ABSOLUTE MAN 0.21 K/mm3 (0.84-5.20); LYMPHOCYTES PERCENT MAN 3 % (21-46); MONOCYTES ABSOLUTE MAN 0.29 K/mm3 (0.16-1.47); MONOCYTES PERCENT MAN 4 % (4-13); NEUTROPHILS ABSOLUTE MAN 6.74 K/mm3 (1.96-9.15); SEG NEUTROPHILS PERCENT MAN 92 % (41-73); TOTAL CELLS COUNTED 100
[2023-09-23 09:16] LABS: Bun/Creatinine Ratio 20.9 (12.0-20.0); Calcium, Blood 8.6 mg/dL (8.5-10.1); Creatinine, Blood 1.1 mg/dL (0.40-1.00); Percent Saturation 19.7 % (15.0-50.0); Potassium, Blood 4.5 mmol/L (3.5-5.5)
[2023-09-23 10:18] VITALS: BP 110/74
[2023-09-23] MEDS ORDERED: FUROSEMIDE20 MG PO (10:44)
[2023-09-23 12:03] LABS: SARS-Cov-2 (COVID-19) PCR, MMC NEGATIVE (NEGATIVE)
[2023-09-23 15:04] VITALS: BP 112/74
--- NOTE | 2023-09-23 16:19 | NUR ---
SHIFT SUMMARY: PATIENT ALERT AND ORIENTED X 4 THROUGHOUT THE SHIFT. PATIENT REPORTED FATIGUE AND GENERAL MALAISE. PATIENT DENIED SHORTNESS OF BREATH. SOME WET BREATHS NOTED THAT IMPROVED WITH COUGH AND REPOSITIONING. PATIENT STABLE ON 3L O2 VIA NC. PATIENT UP TO BSC. PATIENT REPORTED FATIGUE WITH ACTIVITY. PATIENT MEDICATED FOR PAIN PER PRNS. PATIENT REPORTED RELIEF FROM PAIN WITH REPOSITIONING AND MEDICATIONS. PATIENT ABLE TO NAP AND PARTICIPATE WITH THERAPY. PATIENT DISCHARGED TO [facility] THIS AFTERNOON WITH TRANSPORT. REPORT CALLED. PATIENT STABLE AT TIME OF DISCHARGE.
== END 2023-09-23 16:05 | DRG 177 ==
LOC: ER 08:51 → MEDS 13:08 → PCU 13:08 → MEDS 09-19 15:17 → ENPENDDIS 09-23 10:41 → MEDS 09-23 16:05
PROVIDERS: Emergency Medicine; Family Medicine; ADMIT Internal Medicine
DX: J15.69 Pneumonia due to other Gram-negative bacteria (principal); I50.33 Acute on chronic diastolic (congestive) heart failure; J96.01 Acute respiratory failure with hypoxia; J44.0 Chronic obstructive pulmonary disease with (acute) lower respiratory infection; E87.1 Hypo-osmolality and hyponatremia; I13.0 Hypertensive heart and chronic kidney disease with heart failure and stage 1 through stage 4 chronic kidney disease, or unspecified chronic kidney disease; H26.9 Unspecified cataract; I48.91 Unspecified atrial fibrillation; N18.30 Chronic kidney disease, stage 3 unspecified; D63.1 Anemia in chronic kidney disease; E87.6 Hypokalemia; M54.9 Dorsalgia, unspecified; G89.29 Other chronic pain; R54 Age-related physical debility; Z90.710 Acquired absence of both cervix and uterus; Z90.49 Acquired absence of other specified parts of digestive tract; Z88.5 Allergy status to narcotic agent; Z79.899 Other long term (current) drug therapy; Z79.891 Long term (current) use of opiate analgesic; Z79.01 Long term (current) use of anticoagulants; Z85.118 Personal history of other malignant neoplasm of bronchus and lung; Z79.2 Long term (current) use of antibiotics; Z98.890 Other specified postprocedural states; Z11.52 Encounter for screening for COVID-19; Z87.891 Personal history of nicotine dependence; Z99.81 Dependence on supplemental oxygen
CPT/HCPCS: 0241U; 36415; 71045; 80048; 80053; 82607; 82728; 82746; 83540; 83550; 83690; 83880; 84484; 85025; 87070; 87077; 87186; 87205; 87633; 93005; 93010; 94640; 94664; 94760; 94762; 96365; 96375; 97110; 97116; 97162; 97530; 99285-25; A9270; J0456; J0696; J1940; J2185; J3480; J7050; J7626; U0002

== ENCOUNTER 2023-10-02 19:13 | Emergency (ER) | payer MEDICARE ==
[~2023-10-02] VITALS: Ht 152.4 cm; Wt 54.0 kg
[~2023-10-02 19:13] MED LIST changes: +Brovana15 MCG/2 M INH; +NEURONTIN300 MG PO
[2023-10-02 19:44] LABS: BASOPHILS ABSOLUTE AUTO 0.06 K/mm3 (0.00-0.23); BASOPHILS PERCENT AUTO 1 % (0-2); EOSINOPHILS ABSOLUTE AUTO 0.11 K/mm3 (0.00-0.68); EOSINOPHILS PERCENT AUTO 2 % (0-6); Hematocrit 34.5 % (33.0-51.0); Hemoglobin 10.4 g/dL (11.5-16.0); IMMATURE GRAN ABSOLUTE AUTO 0.02 K/mm3 (0.00-0.10); IMMATURE GRAN PERCENT AUTO 0 % (0-1); LYMPHOCYTES ABSOLUTE AUTO 0.28 K/mm3 (0.84-5.20); LYMPHOCYTES PERCENT AUTO 5 % (21-46); MONOCYTES ABSOLUTE AUTO 0.83 K/mm3 (0.16-1.47); MONOCYTES PERCENT AUTO 13 % (4-13); Mean Corpuscular HGB 30.7 pg (26.0-34.0); Mean Corpuscular HGB Conc 30.1 g/dL (31.5-36.5); Mean Corpuscular Volume 102 fL (80-100); Mean Platelet Volume 9.4 fL (9.1-12.4); NEUTROPHILS ABSOLUTE AUTO 4.95 K/mm3 (1.96-9.15); NEUTROPHILS PERCENT AUTO 79 % (41-73); Platelet Count 219 K/mm3 (150-400); RDW Coefficient Variation 19.8 % (11.7-14.2); RDW Standard Deviation 75.5 fL (35.1-46.3); Red Blood Cell Count 3.39 M/mm3 (3.80-5.20); White Blood Cell Count 6.25 K/mm3 (4.00-11.30)
[2023-10-02 20:04] LABS: Albumin, Blood 1.9 g/dL (3.4-5.0); Albumin/Globulin Ratio 0.4 (0.8-1.8); Bilirubin, Total 0.4 mg/dL (0.1-1.0); Calcium, Blood 8.9 mg/dL (8.5-10.1); Creatinine, Blood 0.61 mg/dL (0.40-1.00); Globulin, Blood 5.1 g/dL (2.2-4.0); Potassium, Blood 3.9 mmol/L (3.5-5.5)
[2023-10-02] MEDS ORDERED: OxyCODONE HCL 5 MG TAB PO ONE (20:25)
[2023-10-02] MEDS ORDERED: LORazepam 2 MG/ML 1ML Injection IV ONE (21:25)
[2023-10-02] MEDS ORDERED: PROBIOTIC1 EA14 PO (22:16)
[2023-10-02] MEDS ORDERED: OXYCODONE-ACET1 EAC2 PO (22:18)
[2023-10-02] MEDS ORDERED: TRAZ50 PO (22:19)
[2023-10-02] MEDS ORDERED: MIRALAX17 GM PO (22:33)
[2023-10-03 01:00] VITALS: BP 126/75
== END 2023-10-03 01:21 | disposition home or self-care (01) ==
LOC: ER 19:13
PROVIDERS: Emergency Medicine
DX: R07.9 Chest pain, unspecified (principal); I48.20 Chronic atrial fibrillation, unspecified; F41.9 Anxiety disorder, unspecified; T45.511A Poisoning by anticoagulants, accidental (unintentional), initial encounter; J44.9 Chronic obstructive pulmonary disease, unspecified; I11.0 Hypertensive heart disease with heart failure; I50.9 Heart failure, unspecified; Z88.5 Allergy status to narcotic agent; Z79.899 Other long term (current) drug therapy; Z79.01 Long term (current) use of anticoagulants
CPT/HCPCS: 71046; 80053; 82607; 82746; 83880; 84484; 85025; 93005; 93010; 96374; 99285-25; A9270; J2060

== ENCOUNTER 2023-10-04 08:43 | Emergency (ER) | payer MEDICARE ==
[~2023-10-04] VITALS: Ht 152.4 cm; Wt 53.5 kg
[~2023-10-04 08:43] MED LIST changes: +MIRALAX17 GM PO; +PROBIOTIC1 EA14 PO
[2023-10-04 09:14] LABS: BASOPHILS ABSOLUTE AUTO 0.06 K/mm3 (0.00-0.23); BASOPHILS PERCENT AUTO 1 % (0-2); EOSINOPHILS PERCENT AUTO 2 % (0-6); Hemoglobin 9.7 g/dL (11.5-16.0); IMMATURE GRAN ABSOLUTE AUTO 0.03 K/mm3 (0.00-0.10); IMMATURE GRAN PERCENT AUTO 0 % (0-1); LYMPHOCYTES ABSOLUTE AUTO 0.27 K/mm3 (0.84-5.20); LYMPHOCYTES PERCENT AUTO 4 % (21-46); MONOCYTES ABSOLUTE AUTO 0.65 K/mm3 (0.16-1.47); MONOCYTES PERCENT AUTO 9 % (4-13); Mean Corpuscular HGB 30.9 pg (26.0-34.0); Mean Corpuscular HGB Conc 30.3 g/dL (31.5-36.5); Mean Corpuscular Volume 102 fL (80-100); Mean Platelet Volume 9.9 fL (9.1-12.4); NEUTROPHILS ABSOLUTE AUTO 5.77 K/mm3 (1.96-9.15); NEUTROPHILS PERCENT AUTO 84 % (41-73); Platelet Count 226 K/mm3 (150-400); RDW Coefficient Variation 19.5 % (11.7-14.2); RDW Standard Deviation 74.1 fL (35.1-46.3); Red Blood Cell Count 3.14 M/mm3 (3.80-5.20); White Blood Cell Count 6.88 K/mm3 (4.00-11.30)
[2023-10-04 09:35] LABS: Albumin, Blood 1.9 g/dL (3.4-5.0); Albumin/Globulin Ratio 0.4 (0.8-1.8); Bilirubin, Total 0.5 mg/dL (0.1-1.0); Bun/Creatinine Ratio 34.4 (12.0-20.0); Creatinine, Blood 0.58 mg/dL (0.40-1.00); Globulin, Blood 5.2 g/dL (2.2-4.0); Potassium, Blood 4.3 mmol/L (3.5-5.5); Total Protein, Blood 7.1 g/dL (6.4-8.2)
[2023-10-04 09:37] LABS: BASOPHILS PERCENT MAN 0 % (0-2); EOSINOPHILS ABSOLUTE MAN 0.06 K/mm3 (0.00-0.68); EOSINOPHILS PERCENT MAN 1 % (0-6); LYMPHOCYTES ABSOLUTE MAN 0.13 K/mm3 (0.84-5.20); LYMPHOCYTES PERCENT MAN 2 % (21-46); MONOCYTES ABSOLUTE MAN 0.27 K/mm3 (0.16-1.47); MONOCYTES PERCENT MAN 4 % (4-13); NEUTROPHILS ABSOLUTE MAN 6.39 K/mm3 (1.96-9.15); SEG NEUTROPHILS PERCENT MAN 93 % (41-73); TOTAL CELLS COUNTED 100
[2023-10-04] MEDS ORDERED: OxyCODONE 7.5 mg/Acetam 325 mg TABLET PO ONE (10:20)
[2023-10-04] MEDS ORDERED: Furosemide 10 MG/ML 4ML Vial IV ONE (10:30)
[2023-10-04 11:30] VITALS: BP 116/82
== END 2023-10-04 12:05 | disposition home or self-care (01) ==
LOC: ER 08:43
PROVIDERS: Emergency Medicine
DX: J90 Pleural effusion, not elsewhere classified (principal); Z85.118 Personal history of other malignant neoplasm of bronchus and lung; Z88.5 Allergy status to narcotic agent; Z79.899 Other long term (current) drug therapy; J44.9 Chronic obstructive pulmonary disease, unspecified; I10 Essential (primary) hypertension; I50.9 Heart failure, unspecified; I48.91 Unspecified atrial fibrillation
CPT/HCPCS: 71045; 80053; 84484; 85025; 93005; 93010; 96374; 99285-25; A9270; J1940

== ENCOUNTER 2023-10-08 12:47 | Emergency (ER) | payer MEDICARE ==
[~2023-10-08] VITALS: Ht 152.4 cm; Wt 52.6 kg
[2023-10-08] MEDS ORDERED: LORA.5 PO (13:47)
[2023-10-08] MEDS ORDERED: OXYC10TA19 PO (13:50)
[2023-10-08] MEDS ORDERED: DABI150C (13:50)
[2023-10-08] MEDS ORDERED: OxyCODONE 10/Acetamin 325 TABLET PO ONE (14:20)
[2023-10-08 14:52] LABS: BASOPHILS ABSOLUTE AUTO 0.02 K/mm3 (0.00-0.23); BASOPHILS PERCENT AUTO 0 % (0-2); EOSINOPHILS ABSOLUTE AUTO 0.02 K/mm3 (0.00-0.68); EOSINOPHILS PERCENT AUTO 0 % (0-6); Hematocrit 29.4 % (33.0-51.0); Hemoglobin 9.1 g/dL (11.5-16.0); IMMATURE GRAN ABSOLUTE AUTO 0.02 K/mm3 (0.00-0.10); IMMATURE GRAN PERCENT AUTO 0 % (0-1); LYMPHOCYTES ABSOLUTE AUTO 0.18 K/mm3 (0.84-5.20); LYMPHOCYTES PERCENT AUTO 3 % (21-46); MONOCYTES ABSOLUTE AUTO 0.53 K/mm3 (0.16-1.47); MONOCYTES PERCENT AUTO 9 % (4-13); Mean Corpuscular HGB 30.3 pg (26.0-34.0); Mean Corpuscular Volume 98 fL (80-100); Mean Platelet Volume 10.3 fL (9.1-12.4); NEUTROPHILS ABSOLUTE AUTO 5.01 K/mm3 (1.96-9.15); NEUTROPHILS PERCENT AUTO 87 % (41-73); Platelet Count 241 K/mm3 (150-400); RDW Coefficient Variation 18.6 % (11.7-14.2); RDW Standard Deviation 66.5 fL (35.1-46.3); White Blood Cell Count 5.78 K/mm3 (4.00-11.30)
[2023-10-08 15:09] LABS: Albumin, Blood 1.9 g/dL (3.4-5.0); Albumin/Globulin Ratio 0.4 (0.8-1.8); Bilirubin, Total 0.6 mg/dL (0.1-1.0); Bun/Creatinine Ratio 28.6 (12.0-20.0); Calcium, Blood 9.5 mg/dL (8.5-10.1); Creatinine, Blood 0.52 mg/dL (0.40-1.00); Globulin, Blood 5.1 g/dL (2.2-4.0); Potassium, Blood 3.9 mmol/L (3.5-5.5)
[2023-10-08] MEDS ORDERED: Mag Hydrox/AL Hydrox/Simeth 30 ML UDC PO ONE (15:50)
[2023-10-08] MEDS ORDERED: Atropine/Scopalam/Hyoscam/PB 5 ML UDC PO ONE (15:50)
[2023-10-08] MEDS ORDERED: Lidocaine 2% Viscous Soln 15 ML UDC PO ONE (15:50)
[2023-10-08] MEDS ORDERED: Mag Hydrox/Al Hydrox/Simeth 18 ML,Lidocaine 2% Viscous Soln 9 ML,Atropine/Scopalam/Hyos... PO ONE (16:10)
[2023-10-08] MEDS ORDERED: SUCR1 PO (16:49)
[2023-10-08 17:16] VITALS: BP 115/71
== END 2023-10-08 17:40 | disposition home or self-care (01) ==
LOC: ER 12:47
PROVIDERS: Family Medicine
DX: K29.70 Gastritis, unspecified, without bleeding (principal); Z88.5 Allergy status to narcotic agent; Z79.899 Other long term (current) drug therapy; J44.9 Chronic obstructive pulmonary disease, unspecified; I11.0 Hypertensive heart disease with heart failure; I50.9 Heart failure, unspecified; I48.91 Unspecified atrial fibrillation
CPT/HCPCS: 71045; 80053; 84484; 85025; 93005; 93010; 99285-25; A9270